=== PATIENT | male | born 1945 | race Caucasian/White ===

== ENCOUNTER 2017-10-18 16:09 | Inpatient (IN) | payer MEDICARE, BC ==
[~2017-10-18] VITALS: Ht 177.8 cm; Wt 84.6 kg
[~2017-10-18 16:09] MED LIST: ASPI-1265 PO; ATOR40TA PO; DIPH25CA6 PO; ESOM20CA PO; FLO0.4C PO; HYDR-3972 PO; LORA10TA65 PO; METO-539 PO; MULT-1074 PO; NITR4.1S2 TL; SILD100T PO; TRAZ-143 PO
[2017-10-18 16:33] LABS: BASOPHILS % (AUTO) 0.3 % (0-1); EOSINOPHILS # (AUTO) 0.6 X10'3 (0-0.9); EOSINOPHILS % (AUTO) 5.4 % (0-6); HEMATOCRIT 38.7 % (42.0-52.0); HEMOGLOBIN 13.2 g/dl (14.0-17.9); LYMPHOCYTES # (AUTO) 0.8 X10'3 (1.1-4.8); LYMPHOCYTES % (AUTO) 6.6 % (21-51); MEAN CORPUSCULAR HEMOGLOBIN 29.8 PG (27.0-31.0); MEAN CORPUSCULAR HGB CONC 34.2 % (33.0-36.5); MEAN CORPUSCULAR VOLUME 87.1 FL (78-98); MONOCYTES # (AUTO) 0.8 X10'3 (0-0.9); MONOCYTES % (AUTO) 6.3 % (2-12); NEUTROPHILS # (AUTO) 9.8 X10'3 (1.8-7.7); NEUTROPHILS % (AUTO) 81.4 % (42-75); PLATELET COUNT 154 X10'3 (140-440); RED BLOOD COUNT 4.44 X10'6 (4.70-6.10); RED CELL DISTRIBUTION WIDTH 13.6 % (11.5-14.5); WHITE BLOOD COUNT 12.1 X10'3 (4.5-11.0)
[2017-10-18 16:45] LABS: INR 1.1 INR; PARTIAL THROMBOPLASTIN TIME 27 SECONDS (22-32); PROTHROMBIN TIME 10.9 SECONDS (9.0-12.0)
[2017-10-18 17:07] LABS: ALANINE AMINOTRANSFERASE 22 U/L (12-78); ALBUMIN 3.5 G/DL (3.4-5.0); ALBUMIN/GLOBULIN RATIO 1.1 (1.1-1.5); ALKALINE PHOSPHATASE 83 IU/L (46-116); ANION GAP 8 (8-16); ASPARTATE AMINO TRANSFERASE 22 U/L (10-37); BILIRUBIN,TOTAL 0.9 MG/DL (0.1-1.0); BLOOD UREA NITROGEN 14 MG/DL (7-18); BUN/CREATININE RATIO 12.7 (5.4-32.0); CALCIUM 8.4 MG/DL (8.5-10.1); CHLORIDE 110 MMOL/L (99-107); GLUCOSE 105 MG/DL (70-104); POTASSIUM 3.9 MMOL/L (3.5-5.1); SODIUM 145 MMOL/L (135-145); TOTAL CARBON DIOXIDE 26.7 MMOL/L (24-32); TOTAL PROTEIN 6.6 G/DL (6.4-8.2); eGFR 65 ML/MIN
[2017-10-18] MEDS ORDERED: potassium cl 20mEq in 1/2 NS 1,000 ML IV SCH (17:42)
[2017-10-18] MEDS ORDERED: acetaminophen 325mg tablet PO PRN (17:45)
[2017-10-18] MEDS ORDERED: magnesium hydroxide 30ml (MOM) UD suspension PO PRN (17:45)
[2017-10-18] MEDS ORDERED: mag hydrox/Alum hydrox/simeth 30ml oral suspension PO PRN (17:45)
[2017-10-18] MEDS ORDERED: ondansetron/PF 4mg/2ml inj IV PRN (17:45)
[2017-10-18] MEDS ORDERED: morphine 2 MG/ML inj. syringe IV PRN ×2 (17:45)
[2017-10-18] MEDS ORDERED: HYDROcodone/acetaminophen 5mg/325mg tablet PO PRN (17:45)
[2017-10-18] MEDS ORDERED: potassium Cl 20 mEq SR tablet PO PRN ×2 (17:45)
[2017-10-18] MEDS ORDERED: magnesium Cl slow-release 64mg tablet PO PRN (17:45)
[2017-10-18] MEDS ORDERED: magnesium 2GM in 50ml NS 50 ML IV PRN (17:45)
[2017-10-18] MEDS ORDERED: bisacodyl 10mg suppository rectal RC PRN (17:45)
[2017-10-18] MEDS ORDERED: magnesium 4gm in 100ml NS 100 ML IV PRN (17:45)
[2017-10-18] MEDS ORDERED: potassium Cl 40MEQ/NS 500ml 500 ML IV PRN ×2 (17:45)
[2017-10-18] MEDS ORDERED: metoprolol tartrate 1mg/ml inj IV PRN (17:50)
[2017-10-18] MEDS ORDERED: regadenoson 0.4mg/5ml syringe IV ONE (17:50)
[2017-10-18] MEDS: aspirin 81mg tab.chew PO SCH (17:50)
[2017-10-18] MEDS ORDERED: aminophylline 250mg/10ml inj. IV PRN (17:50)
[2017-10-18] MEDS ORDERED: nitroGLYCERIN 0.4mg SUBLingual tab SL PRN ×2 (17:50→17:55)
[2017-10-18] MEDS: metoprolol succinate 25mg (24-HOUR) SR. Tablet PO SCH (17:55)
[2017-10-18] MEDS ORDERED: hydrALAZINE 20mg/ml inj. IV PRN (17:55)
[2017-10-18 19:37] LABS: CLARITY,URINE CLEAR (Clear); COLOR,URINE YELLOW (Yellow); GLUCOSE, URINE NEGATIVE (Neg); KETONES,URINE NEGATIVE (Neg); LEUKOCYTE ESTERASE ,URINE NEGATIVE (Neg); NITRITES, URINE NEGATIVE (Neg); OCCULT BLOOD,URINE NEGATIVE (Neg); PROTEIN,URINE NEGATIVE (Neg); UROBILINOGEN,URINE 0.2 E.U/dL (0.2-1.0)
[2017-10-18 19:41] LABS: UA COLLECTION TYPE CLN CATCH MIDSTREAM
[2017-10-18] MEDS: LIDOcaine 5% patch TP SCH (19:42)
[2017-10-18] MEDS: pantoprazole 40 MG vial IV SCH (19:42)
[2017-10-18 20:22] VITALS: BP 159/87
[2017-10-18] MEDS: docusate sod 100mg capsule PO SCH (20:53)
[2017-10-18] MEDS ORDERED: traZODone 50mg tablet PO SCH (21:00)
[2017-10-18] MEDS ORDERED: diphenhydrAMINE 25mg capsule PO SCH (21:00)
[2017-10-18] MEDS: HYDROcodone/acetaminophen 10/325mg tab PO PRN (23:03)
[2017-10-19] VITALS (8 sets, daily range): BP systolic 115–158; BP diastolic 70–78
[2017-10-19] MEDS: HYDROcodone/acetaminophen 10/325mg tab PO PRN (03:20)
[2017-10-19 05:26] LABS: BASOPHILS % (AUTO) 0.4 % (0-1); EOSINOPHILS # (AUTO) 0.6 X10'3 (0-0.9); EOSINOPHILS % (AUTO) 6.7 % (0-6); HEMATOCRIT 36.1 % (42.0-52.0); HEMOGLOBIN 12.4 g/dl (14.0-17.9); LYMPHOCYTES # (AUTO) 0.9 X10'3 (1.1-4.8); LYMPHOCYTES % (AUTO) 9.7 % (21-51); MEAN CORPUSCULAR HEMOGLOBIN 29.6 PG (27.0-31.0); MEAN CORPUSCULAR HGB CONC 34.3 % (33.0-36.5); MEAN CORPUSCULAR VOLUME 86.2 FL (78-98); MEAN PLATELET VOLUME 8.9 FL (7.4-10.4); MONOCYTES # (AUTO) 0.7 X10'3 (0-0.9); NEUTROPHILS % (AUTO) 75.2 % (42-75); PLATELET COUNT 135 X10'3 (140-440); RED BLOOD COUNT 4.19 X10'6 (4.70-6.10); RED CELL DISTRIBUTION WIDTH 13.7 % (11.5-14.5); WHITE BLOOD COUNT 9.3 X10'3 (4.5-11.0)
[2017-10-19 06:07] LABS: ALANINE AMINOTRANSFERASE 20 U/L (12-78); ALKALINE PHOSPHATASE 73 IU/L (46-116); ANION GAP 10 (8-16); ASPARTATE AMINO TRANSFERASE 19 U/L (10-37); BILIRUBIN,TOTAL 0.7 MG/DL (0.1-1.0); BLOOD UREA NITROGEN 13 MG/DL (7-18); BUN/CREATININE RATIO 11.8 (5.4-32.0); CHLORIDE 110 MMOL/L (99-107); CHOL/HDL RATIO 2.5 (0.00-4.99); CHOLESTEROL 91 MG/DL (0-200); GLUCOSE 87 MG/DL (70-104); HDL CHOLESTEROL 36 MG/DL (35-60); LDL CHOLESTEROL 46 MG/DL (50-100); MAGNESIUM 1.8 MG/DL (1.5-2.4); POTASSIUM 3.6 MMOL/L (3.5-5.1); SODIUM 144 MMOL/L (135-145); TOTAL CARBON DIOXIDE 23.9 MMOL/L (24-32); TOTAL PROTEIN 5.9 G/DL (6.4-8.2); TRIGLYCERIDES 57 MG/DL (20-135); eGFR 65 ML/MIN
[2017-10-19] MEDS ORDERED: K and/or MAG REPLACEMENT MC SCH (08:00)
[2017-10-19] MEDS ORDERED: enoxaparin 40mg/0.4ml syringe SUBCUT SCH (08:00)
[2017-10-19] MEDS ORDERED: multivitamins, therapeutics tablet PO SCH (08:00)
[2017-10-19] MEDS ORDERED: tamsulosin 0.4mg capsule PO SCH (08:00)
[2017-10-19] MEDS ORDERED: metoprolol succinate 25mg (24-HOUR) SR. Tablet PO SCH (08:00)
[2017-10-19] MEDS ORDERED: atorvastatin 20mg tablet PO SCH (08:00)
[2017-10-19] MEDS: pantoprazole 40 MG vial IV SCH (08:18)
[2017-10-19] MEDS: aspirin 81mg tab.chew PO SCH (08:19)
[2017-10-19] MEDS: metoprolol succinate 25mg (24-HOUR) SR. Tablet PO SCH (08:19)
[2017-10-19] MEDS: LIDOcaine 5% patch TP SCH (08:20)
[2017-10-19] MEDS: docusate sod 100mg capsule PO SCH (08:20)
[2017-10-19] MEDS ORDERED: lisinopril 5mg tablet PO SCH (09:00)
[2017-10-19] MEDS ORDERED: regadenoson 0.4mg/5ml syringe IV ONE ×2 (09:17→09:20)
[2017-10-19] MEDS ORDERED: aminophylline inj. 0 ML IV ONE (09:17)
[2017-10-19] MEDS ORDERED: NITR0.4T51 SL (15:36)
[2017-10-19] MEDS ORDERED: LISI-604 PO (15:36)
[2017-10-19] MEDS ORDERED: LIDO700A47 TP (15:36)
== END 2017-10-19 16:21 | disposition home or self-care (01) | DRG 552 ==
LOC: ER 16:09 → ED HOLD 17:42 → SUR 3N 20:21
PROVIDERS: ADMIT Internal Medicine; ATTEND Internal Medicine
DX: M47.892 Other spondylosis, cervical region (principal); M48.02 Spinal stenosis, cervical region; D72.828 Other elevated white blood cell count; E78.5 Hyperlipidemia, unspecified; G89.29 Other chronic pain; M50.30 Other cervical disc degeneration, unspecified cervical region; I10 Essential (primary) hypertension; I25.10 Atherosclerotic heart disease of native coronary artery without angina pectoris; K21.9 Gastro-esophageal reflux disease without esophagitis; Z98.84 Bariatric surgery status; Z90.49 Acquired absence of other specified parts of digestive tract; Z95.1 Presence of aortocoronary bypass graft; Z91.041 Radiographic dye allergy status; Z79.82 Long term (current) use of aspirin; Z79.899 Other long term (current) drug therapy; Z87.891 Personal history of nicotine dependence
CPT/HCPCS: 36415; 71045; 72141; 78452; 80053; 80061; 81003; 83735; 83880; 84484; 85025; 85610; 85730; 87070; 93005; 93017; 93306; 99285; A9500; C9113; J0280; J1650; Q0163

== ENCOUNTER 2021-05-07 11:13 | Day surgery (SDC) | payer MEDICARE, BC ==
[~2021-05-07] VITALS: Ht 167.6 cm; Wt 76.3 kg
[2021-05-07] VITALS (9 sets, daily range): BP systolic 119–132; BP diastolic 57–74
[~2021-05-07 11:13] MED LIST changes: -ASPI-1265 PO; -ATOR40TA PO; +BUPR1TAB48 SL; +CYAN500T46 PO; -DIPH25CA6 PO; +DONE10TA7 PO; -ESOM20CA PO; +FERR-28 PO; +FLUC100T25 PO; +FOLI0.4T14 PO; -HYDR-3972 PO; +MEMA14CA PO; -METO-539 PO; +NITR0.4T51 SL; -NITR4.1S2 TL; +PANT-47 PO; +SEVE800T7 PO; -SILD100T PO; +SUCR1TAB PO; -TRAZ-143 PO; +TRAZ-251 PO
[2021-05-07] MEDS ORDERED: normal saline 1,000 ML IV SCH ×2 (11:55→15:05)
[2021-05-07] MEDS ORDERED: diphenhydrAMINE 25mg capsule PO PRN (11:55)
[2021-05-07] MEDS ORDERED: NITR0.4T48 SL (12:04)
[2021-05-07] MEDS ORDERED: ATOR80TA PO (12:04)
[2021-05-07] MEDS ORDERED: PRED20TA (12:06)
[2021-05-07] MEDS ORDERED: METO5TAB98 PO (12:09)
[2021-05-07] MEDS ORDERED: PHO667C PO (12:09)
[2021-05-07] MEDS ORDERED: MIDO10TA PO (12:09)
[2021-05-07] MEDS ORDERED: CYCL-1 PO (12:09)
[2021-05-07] MEDS ORDERED: MEMA5TAB42 PO (12:09)
[2021-05-07] MEDS ORDERED: FOLI1TAB34 PO (12:09)
[2021-05-07] MEDS ORDERED: ASPI-611 PO (12:12)
[2021-05-07] MEDS ORDERED: FURO80TA3 (12:12)
[2021-05-07] MEDS ORDERED: PREVAGEN (12:14)
[2021-05-07] MEDS ORDERED: OCCUVITE (12:14)
[2021-05-07] MEDS ORDERED: CA C1TAB89 PO (12:14)
[2021-05-07 12:21] LABS: BASOPHILS % (AUTO) 0 % (0-1); EOSINOPHILS % (AUTO) 0 % (0-6); HEMATOCRIT 29.4 % (42.0-52.0); HEMOGLOBIN 9.8 g/dl (14.0-17.9); LYMPHOCYTES # (AUTO) 0.3 X10'3 (1.1-4.8); LYMPHOCYTES % (AUTO) 2.2 % (21-51); MEAN CORPUSCULAR HEMOGLOBIN 31.2 PG (27.0-31.0); MEAN CORPUSCULAR HGB CONC 33.3 g/dL (33.0-36.5); MEAN CORPUSCULAR VOLUME 93.6 FL (78-98); MEAN PLATELET VOLUME 7.3 FL (7.4-10.4); MONOCYTES # (AUTO) 0.3 X10'3 (0-0.9); MONOCYTES % (AUTO) 1.7 % (2-12); NEUTROPHILS # (AUTO) 14.9 X10'3 (1.8-7.7); NEUTROPHILS % (AUTO) 96.1 % (42-75); PLATELET COUNT 254 X10'3 (140-440); RED BLOOD COUNT 3.15 X10'6 (4.70-6.10); RED CELL DISTRIBUTION WIDTH 12.9 % (11.5-14.5); WHITE BLOOD COUNT 15.4 X10'3 (4.5-11.0)
[2021-05-07 12:45] LABS: ALBUMIN 3.2 G/DL (3.4-5.0); ANION GAP 13 (8-16); BLOOD UREA NITROGEN 88 MG/DL (7-18); BUN/CREATININE RATIO 12.5 (5.4-32.0); CALCIUM 7.4 MG/DL (8.5-10.1); CHLORIDE 96 MMOL/L (99-107); CREATININE 7.02 MG/DL (0.60-1.10); GLUCOSE 156 MG/DL (70-104); MAGNESIUM 2.5 MG/DL (1.5-2.4); POTASSIUM 3.6 MMOL/L (3.5-5.1); SODIUM 135 MMOL/L (135-145); TOTAL CARBON DIOXIDE 25.8 MMOL/L (24-32); eGFR 8 ML/MIN
[2021-05-07] MEDS ORDERED: iohexol 350 MG/ML 50ML vial IV ONE (13:17)
[2021-05-07] MEDS ORDERED: heparin 1,000unit/ml 10ml vial 10 ML ONE (13:17)
[2021-05-07] MEDS ORDERED: LIDOcaine 1% (10mg/ml)w/preservative injection 20ml MDV ONE (13:17)
[2021-05-07] MEDS ORDERED: midazolam 1 mg/ML 2ml injection ONE ×2 (13:17→14:19)
[2021-05-07] MEDS ORDERED: fentaNYL/PF 50MCG/1 ML 2ML syringe ONE (13:17)
[2021-05-07] MEDS ORDERED: iohexol 350MG/ML 100ml bottle IV ONE (13:18)
[2021-05-07] MEDS ORDERED: sodium bicarbonate (8.4%) inj. 150 ML in dextrose 5%-water 1,000 ML IV ONE (13:20)
[2021-05-07] MEDS ORDERED: diphenhydrAMINE 50 mg/ml inj ONE (14:09)
[2021-05-07] MEDS ORDERED: ondansetron/PF 4mg/2ml inj IV PRN (15:05)
[2021-05-07] MEDS ORDERED: HYDROcodone/acetaminophen 5mg/325mg tablet PO PRN (15:10)
[2021-05-07] MEDS ORDERED: OXAZEpam 15mg capsule PO PRN (15:10)
[2021-05-07] MEDS ORDERED: proCHLORperazine 10 MG/2 ml inj IV PRN (15:10)
[2021-05-07] MEDS ORDERED: HYDROcodone/acetaminophen 10/325mg tab PO PRN (15:10)
== END 2021-05-07 18:10 | disposition home or self-care (01) ==
LOC: SSTAY O 11:13
PROVIDERS: ATTEND Internal Medicine Cardiovascular Disease
DX: R94.39 Abnormal result of other cardiovascular function study (principal); R07.89 Other chest pain; I25.719 Atherosclerosis of autologous vein coronary artery bypass graft(s) with unspecified angina pectoris; I25.82 Chronic total occlusion of coronary artery; I10 Essential (primary) hypertension; I47.1 Supraventricular tachycardia; Z87.891 Personal history of nicotine dependence; Z79.82 Long term (current) use of aspirin; Z79.899 Other long term (current) drug therapy
CPT/HCPCS: 36415; 80048; 83735; 85025; 85610; 93005; 93459; 99152; C1760; C1769; C1894; J1200; J1644; J2001; J2250; J3010; J7030; Q0163; Q9967; A4620; A6258

== ENCOUNTER 2021-05-30 12:13 | Inpatient (IN) | payer MEDICARE, BC ==
[~2021-05-30] VITALS: Ht 172.7 cm; Wt 70.0 kg
[2021-05-30] VITALS (11 sets, daily range): BP systolic 115–161; BP diastolic 64–78
[~2021-05-30 12:13] MED LIST changes: +ASPI-611 PO; +ATOR80TA PO; -BUPR1TAB48 SL; +CA C1TAB89 PO; -CYAN500T46 PO; +CYCL-1 PO; -FERR-28 PO; -FLUC100T25 PO; +FOLI1TAB34 PO; +FURO80TA3 PO; -LORA10TA65 PO; -MEMA14CA PO; +MEMA5TAB42 PO; +METO5TAB98 PO; +MIDO10TA PO; +NITR0.4T48 SL; -NITR0.4T51 SL; +OCCUVITE; +PHO667C PO; +PRED20TA; +PREVAGEN; -SEVE800T7 PO; -SUCR1TAB PO
[2021-05-30] MEDS ORDERED: BUPIVAcaine 0.5% inj/PF 30 ML ONE (12:33)
[2021-05-30] MEDS ORDERED: ceFAZolin 1000mg inj ONE (12:33)
[2021-05-30] MEDS ORDERED: methylPREDNISolone sod succ/PF 40mg inj. IV ONE (12:40)
[2021-05-30] MEDS ORDERED: diphenhydrAMINE 50 mg/ml inj IV ONE (12:40)
[2021-05-30 13:00] LABS: BASOPHILS % (AUTO) 0.1 % (0-1); EOSINOPHILS % (AUTO) 0 % (0-6); HEMATOCRIT 35.2 % (42.0-52.0); HEMOGLOBIN 11.5 g/dl (14.0-17.9); LYMPHOCYTES # (AUTO) 0.2 X10'3 (1.1-4.8); LYMPHOCYTES % (AUTO) 0.8 % (21-51); MEAN CORPUSCULAR HGB CONC 32.8 g/dL (33.0-36.5); MEAN CORPUSCULAR VOLUME 94.5 FL (78-98); MEAN PLATELET VOLUME 7.4 FL (7.4-10.4); MONOCYTES # (AUTO) 0.4 X10'3 (0-0.9); MONOCYTES % (AUTO) 1.8 % (2-12); NEUTROPHILS # (AUTO) 19.9 X10'3 (1.8-7.7); NEUTROPHILS % (AUTO) 97.3 % (42-75); PLATELET COUNT 261 X10'3 (140-440); RED BLOOD COUNT 3.72 X10'6 (4.70-6.10); RED CELL DISTRIBUTION WIDTH 13.5 % (11.5-14.5); WHITE BLOOD COUNT 20.4 X10'3 (4.5-11.0)
[2021-05-30 13:08] LABS: ALANINE AMINOTRANSFERASE 28 U/L (12-78); ALBUMIN 3.3 G/DL (3.4-5.0); ALBUMIN/GLOBULIN RATIO 0.9 (1.1-1.5); ALKALINE PHOSPHATASE 105 IU/L (46-116); ANION GAP 14 (8-16); ASPARTATE AMINO TRANSFERASE 28 U/L (10-37); BILIRUBIN,TOTAL 0.5 MG/DL (0.1-1.0); BLOOD UREA NITROGEN 66 MG/DL (7-18); BUN/CREATININE RATIO 8.9 (5.4-32.0); CALCIUM 7.5 MG/DL (8.5-10.1); CHLORIDE 99 MMOL/L (99-107); CREATININE 7.45 MG/DL (0.60-1.10); GLUCOSE 219 MG/DL (70-104); POTASSIUM 3.3 MMOL/L (3.5-5.1); SODIUM 137 MMOL/L (135-145); TOTAL CARBON DIOXIDE 23.9 MMOL/L (24-32); TOTAL PROTEIN 6.9 G/DL (6.4-8.2); eGFR 7 ML/MIN
[2021-05-30 13:22] LABS: PARTIAL THROMBOPLASTIN TIME 27 SECONDS (22-32)
[2021-05-30] MEDS ORDERED: normal saline 1000ML IV soln IV ONE (13:25)
[2021-05-30 14:07] LABS: CLARITY,URINE CLEAR (Clear); COLOR,URINE YELLOW (Yellow); GLUCOSE, URINE 100 mg/dl (Neg); KETONES,URINE TRACE mg/dl (Neg); LEUKOCYTE ESTERASE ,URINE NEGATIVE (Neg); NITRITES, URINE NEGATIVE (Neg); OCCULT BLOOD,URINE MODERATE (Neg); PROTEIN,URINE 30 mg/dl (Neg); UROBILINOGEN,URINE 0.2 E.U/dL (0.2-1.0)
[2021-05-30 14:13] LABS: UA COLLECTION TYPE CLN CATCH MIDSTREAM
[2021-05-30] MEDS ORDERED: HYDROmorphone inj. 0.5 MG/0.5 ML DISP.SYRIN IV ONE (14:15)
[2021-05-30 14:33] LABS: BACTERIA,URINE FEW /HPF (Neg); MUCUS STRANDS FEW /LPF (Neg); RBC,URINE 20-50 /HPF (0-2); SQUAMOUS EPITHELIAL CELL,UR FEW /LPF (FEW); WBC,URINE 0-4 /HPF (0-4)
[2021-05-30 14:34] LABS: HYALINE CASTS 0-3 /LPF (NEGATIVE)
[2021-05-30] MEDS ORDERED: iohexol 350MG/ML 100ml bottle IV ONE (14:50)
[2021-05-30] MEDS ORDERED: metroNIDAZOLE-Flagyl 500mg/NS 100 ML IV STA (15:32)
[2021-05-30] MEDS ORDERED: piperacillin/tazo 3.375gm/50ml 50 ML IV ONE (15:35)
[2021-05-30] MEDS ORDERED: ondansetron/PF 4mg/2ml inj IV ONE (15:35)
[2021-05-30] MEDS ORDERED: normal saline 1000ML IV soln IVB ONE (15:35)
[2021-05-30] MEDS ORDERED: ondansetron/PF 4mg/2ml inj IV PRN ×2 (16:10→16:40)
[2021-05-30] MEDS ORDERED: acetaminophen 325mg tablet PO PRN (16:10)
[2021-05-30] MEDS ORDERED: LIDOcaine 2% 10ml TOPICAL JELLY (Urojet) TP ONE (16:10)
[2021-05-30] MEDS ORDERED: CLOP75TA33 PO (16:26)
[2021-05-30] MEDS ORDERED: DONE23TA7 PO (16:26)
[2021-05-30] MEDS ORDERED: BETA1TAB19 PO (16:26)
[2021-05-30] MEDS ORDERED: FA/V1TAB PO (16:26)
[2021-05-30] MEDS ORDERED: SEVE800T7 PO (16:33)
[2021-05-30] MEDS ORDERED: BUPR1TAB48 PO (16:33)
[2021-05-30] MEDS ORDERED: FERR-39 PO (16:33)
--- NOTE | 2021-05-30 16:33 | NUR ---
pt transported to OR by OR personnel
[2021-05-30] MEDS ORDERED: ringers solution, lacted 1,000 ML IV SCH (16:40)
[2021-05-30] MEDS ORDERED: FENTANYL-0.9 % NACL/PF 100 ML IV PRN (16:40)
[2021-05-30] MEDS ORDERED: MIDAZolam inj 50 MG in normal saline 50ml IV soln 40 ML IV SCH (16:40)
[2021-05-30] MEDS ORDERED: midazolam 100mg in NS 100 ML INFUSION IV PRN (16:50)
[2021-05-30] MEDS ORDERED: ondansetron/PF 4mg/2ml inj ONE (16:56)
[2021-05-30] MEDS ORDERED: sevoflurane 250ml liquid IH ONE (16:56)
[2021-05-30] MEDS ORDERED: fentaNYL/PF 50MCG/1 ML 2ML syringe ONE ×2 (17:01→17:18)
[2021-05-30] MEDS ORDERED: MIDAZolam 1 MG/ML 5ML VIAL ONE (17:02)
[2021-05-30] MEDS ORDERED: rocuronium 10mg/ml inj IV ONE ×2 (17:03→18:10)
[2021-05-30] MEDS ORDERED: etomidate 2mg/ml inj. ONE (17:03)
[2021-05-30] MEDS ORDERED: dexamethasone sod phosphate 4mg/ml inj. ONE (17:35)
[2021-05-30 17:59] LABS: ABG BASE EXCESS -4.7 mmol/L (-2.0-2.0); ABG HCO3 19.8 mmol/L (22.0-26.0); ABG OXYGEN SATURATION 98.2 % (94-97); ABG PCO2 (T) 33.1 mmHg (35.0-48.0); ABG PO2 (T) 395.9 mmHg (75.0-100.0); FCOHb 0.3 % (0.0-3.9); FMetHb 0.3 % (0.0-1.5); FO2Hb 97.6 % (94-97); PATIENT TEMPERATURE 36.2; RESPIRATORY RATE 12 b/min; TIDAL VOLUME 500 mL; TOTAL HEMOGLOBIN 9.5 G/dl (14.0-18.0)
[2021-05-30] MEDS ORDERED: bacitracin 15gm ointment TP ONE (18:16)
--- NOTE | 2021-05-30 18:32 | NUR ---
Received from OR via BED TO ICU, accompanied by Anesthesiologist GELA and report given by Anesthesiolgist. PT. VENTED. RT PRESENT. SEE RT NOTES. ET TUBE 25MM AT LIPS. SECURED. FC IN PLACE 300 ML DARK YELLOW URINE NOTED. CENTRAL R. NECK. R. WRIST ART. LINE, ZEROED, L. FA 20 G. CDI. VSS. ABD. DRESSING ABD PAD/ TAPE OVER STERI STRIPS, NO OTHER CLOSURE, IN PLACE DRAINAGE NOTED. REINFORCED. NS INFUSING AT 100 ML/HR. MIDAZOLAM 2 MG/HR, FENTANYL 75 MCG/HR INFUSING IN R. NECK CENTRAL LINE. PERITONEAL DIALYSIS CATHETER IN PLACE. RESTRAINTS APPLIED. VSS. NURSE AT BEDSIDE. Addendum: 05/30/21 at 1930 by Radha Sellers RN Amended: Links added.
--- NOTE | 2021-05-30 19:18 | NUR ---
MD NOTIFIED OF DRAINAGE AT DRESSING. PRESSURE BEING APPLIED AT SITE. MD WILL BE NOTIFIED IF FURTHER ATTENTION IS NEEDED. Addendum: 05/30/21 at 1930 by Radha Sellers RN Amended: Links added.
[2021-05-30 19:30] LABS: BASOPHILS % (AUTO) 0 % (0-1); EOSINOPHILS % (AUTO) 0 % (0-6); HEMATOCRIT 26.3 % (42.0-52.0); HEMOGLOBIN 8.7 g/dl (14.0-17.9); LYMPHOCYTES # (AUTO) 0.1 X10'3 (1.1-4.8); LYMPHOCYTES % (AUTO) 1.1 % (21-51); MEAN CORPUSCULAR HGB CONC 32.9 g/dL (33.0-36.5); MEAN CORPUSCULAR VOLUME 94.2 FL (78-98); MONOCYTES # (AUTO) 0.2 X10'3 (0-0.9); MONOCYTES % (AUTO) 1.4 % (2-12); NEUTROPHILS # (AUTO) 12.9 X10'3 (1.8-7.7); NEUTROPHILS % (AUTO) 97.5 % (42-75); PLATELET COUNT 192 X10'3 (140-440); RED CELL DISTRIBUTION WIDTH 13.3 % (11.5-14.5); WHITE BLOOD COUNT 13.3 X10'3 (4.5-11.0)
--- NOTE | 2021-05-30 19:33 | NUR ---
CHARGE AWARE OF R. GROIN FLUID ACCUMULATION, RN NOTIFIED . STATES PT HAS R. INGUINAL HERNIA. NO NEW ORDERS. CONTINUED PRESSURE ON WOUND X FOR 25 MINUTES. DECREASED BLEEDING, REINFORCEMENT AND PRESSURE DRESSING APPLIED. Addendum: 05/30/21 at 1937 by Radha Sellers RN Amended: Links added.
[2021-05-30 19:40] LABS: PARTIAL THROMBOPLASTIN TIME 26 SECONDS (22-32)
[2021-05-30 19:42] LABS: ALANINE AMINOTRANSFERASE 22 U/L (12-78); ALBUMIN 2.8 G/DL (3.4-5.0); ALBUMIN/GLOBULIN RATIO 1.1 (1.1-1.5); ALKALINE PHOSPHATASE 75 IU/L (46-116); ANION GAP 15 (8-16); ASPARTATE AMINO TRANSFERASE 24 U/L (10-37); BILIRUBIN,TOTAL 0.5 MG/DL (0.1-1.0); BLOOD UREA NITROGEN 58 MG/DL (7-18); CALCIUM 6.4 MG/DL (8.5-10.1); CHLORIDE 106 MMOL/L (99-107); CREATININE 6.43 MG/DL (0.60-1.10); GLUCOSE 167 MG/DL (70-104); POTASSIUM 3.5 MMOL/L (3.5-5.1); SODIUM 140 MMOL/L (135-145); TOTAL CARBON DIOXIDE 19.5 MMOL/L (24-32); TOTAL PROTEIN 5.3 G/DL (6.4-8.2); eGFR 8 ML/MIN
--- NOTE | 2021-05-30 19:42 | NUR ---
HANDED OF CARE TO CHANEL SUAREZ IN ICU. VSS. CONTINUES ON VENT. SEE RT NOTES. IVS IN PLACE NS INFUSING AT 100 ML/HR, MIDAZOLAM AND FENTYL INFUSING FOR SEDATION. FC DRAINING TO GRAVITY. WOUND REINFORCED AND PRESSURE DRESSING APPLIED. DC CRITERIA MET FOR ICU HAND OFF. PT. SEDATED COMFORTABLY. RESTRAINTS IN PLACE. AWARE OF BLEEDING AND FLUID AT GROIN AREA. RN AAWARE OF ALL INFORMATION. QUESTIONS ANSWERED. Addendum: 05/30/21 at 1954 by Radha Sellers RN Amended: Links added.
[2021-05-30] MEDS: heparin, porcine 5000 units/ml vial SQ SCH (19:45)
[2021-05-30 19:58] LABS: ABG BASE EXCESS -5.6 mmol/L (-2.0-2.0); ABG HCO3 18.3 mmol/L (22.0-26.0); ABG OXYGEN SATURATION 98.2 % (94-97); ABG PCO2 (T) 28.1 mmHg (35.0-48.0); FCOHb 0.3 % (0.0-3.9); FMetHb 0.3 % (0.0-1.5); FO2Hb 97.6 % (94-97); PATIENT TEMPERATURE 35.6; PEEP 5 cm H2O; RESPIRATORY RATE 12 b/min; TIDAL VOLUME 600 mL
--- NOTE | 2021-05-30 20:20 | NUR ---
RN Note -MD Communication Dr. Martínez consulted, saw pt via tele [facility]. Orders received.
[2021-05-30] MEDS: famotidine/PF 10 mg/ml inj IV SCH (20:23)
[2021-05-30] MEDS ORDERED: fentaNYL/PF 50MCG/1 ML 2ML syringe IV PRN (20:45)
[2021-05-30] MEDS ORDERED: dexmedetomidin/NS 400mcg/100ml 100 ML IV SCH (22:35)
[2021-05-31] VITALS (30 sets, daily range): BP systolic 84–136; BP diastolic 40–68
[2021-05-31 03:05] LABS: ABG BASE EXCESS -5.9 mmol/L (-2.0-2.0); ABG HCO3 18.4 mmol/L (22.0-26.0); ABG OXYGEN SATURATION 97.8 % (94-97); ABG PO2 (T) 197.4 mmHg (75.0-100.0); FCOHb 0.2 % (0.0-3.9); FMetHb 0.3 % (0.0-1.5); FO2Hb 97.3 % (94-97); PATIENT TEMPERATURE 37.1; PEEP 5 cm H2O; RESPIRATORY RATE 14 b/min; TIDAL VOLUME 500 mL; TOTAL HEMOGLOBIN 7.6 G/dl (14.0-18.0)
[2021-05-31 03:15] LABS: BASOPHILS % (AUTO) 0.1 % (0-1); EOSINOPHILS % (AUTO) 0 % (0-6); HEMATOCRIT 23.6 % (42.0-52.0); HEMOGLOBIN 7.8 g/dl (14.0-17.9); LYMPHOCYTES # (AUTO) 0.2 X10'3 (1.1-4.8); LYMPHOCYTES % (AUTO) 1.4 % (21-51); MEAN CORPUSCULAR HEMOGLOBIN 31.2 PG (27.0-31.0); MEAN CORPUSCULAR VOLUME 94.7 FL (78-98); MEAN PLATELET VOLUME 7.8 FL (7.4-10.4); MONOCYTES # (AUTO) 0.8 X10'3 (0-0.9); MONOCYTES % (AUTO) 4.7 % (2-12); NEUTROPHILS # (AUTO) 15.6 X10'3 (1.8-7.7); NEUTROPHILS % (AUTO) 93.8 % (42-75); PLATELET COUNT 204 X10'3 (140-440); RED BLOOD COUNT 2.49 X10'6 (4.70-6.10); RED CELL DISTRIBUTION WIDTH 13.8 % (11.5-14.5); WHITE BLOOD COUNT 16.6 X10'3 (4.5-11.0)
[2021-05-31 03:46] LABS: ALANINE AMINOTRANSFERASE 25 U/L (12-78); ALBUMIN 2.5 G/DL (3.4-5.0); ALKALINE PHOSPHATASE 65 IU/L (46-116); ANION GAP 17 (8-16); ASPARTATE AMINO TRANSFERASE 21 U/L (10-37); BILIRUBIN,TOTAL 0.3 MG/DL (0.1-1.0); BLOOD UREA NITROGEN 59 MG/DL (7-18); BUN/CREATININE RATIO 8.9 (5.4-32.0); CALCIUM 6.9 MG/DL (8.5-10.1); CHLORIDE 105 MMOL/L (99-107); CREATININE 6.65 MG/DL (0.60-1.10); GLUCOSE 148 MG/DL (70-104); MAGNESIUM 2.4 MG/DL (1.5-2.4); PHOSPHORUS 7.9 MG/DL (2.3-4.5); POTASSIUM 4.2 MMOL/L (3.5-5.1); SODIUM 141 MMOL/L (135-145); TOTAL CARBON DIOXIDE 19.3 MMOL/L (24-32); TOTAL PROTEIN 4.9 G/DL (6.4-8.2); eGFR 8 ML/MIN
[2021-05-31] MEDS ORDERED: midodrine 5mg tablet PO ONE (03:50)
[2021-05-31] MEDS ORDERED: ringers solution, lacted 1,000 ML IV ONE (03:50)
--- NOTE | 2021-05-31 04:35 | NUR ---
RN Note -MD Communication Called Dr. Martínez regarding hypotension and pain control. Orders received.
--- NOTE | 2021-05-31 06:30 | NUR ---
Patient in room ICU 2037. I have received report from Mac RN and had the opportunity to ask questions and assume patient care.
[2021-05-31] MEDS ORDERED: fentaNYL/PF 50MCG/1 ML 2ML syringe IV PRN (07:40)
[2021-05-31] MEDS ORDERED: midodrine tablet 2.5 MG TABLET PO SCH ×2 (08:00→21:00)
[2021-05-31] MEDS ORDERED: midodrine 5mg tablet PO SCH (08:00)
[2021-05-31] MEDS: heparin, porcine 5000 units/ml vial SQ SCH ×2 (08:00→20:00)
[2021-05-31 08:56] LABS: HEMOGLOBIN 7.1 g/dl (14.0-17.9); MEAN CORPUSCULAR HEMOGLOBIN 30.1 PG (27.0-31.0); MEAN CORPUSCULAR HGB CONC 32.5 g/dL (33.0-36.5); MEAN CORPUSCULAR VOLUME 92.7 FL (78-98); MEAN PLATELET VOLUME 7.5 FL (7.4-10.4); PLATELET COUNT 178 X10'3 (140-440); RED BLOOD COUNT 2.36 X10'6 (4.70-6.10); RED CELL DISTRIBUTION WIDTH 14.1 % (11.5-14.5); WHITE BLOOD COUNT 12.1 X10'3 (4.5-11.0)
[2021-05-31 09:06] LABS: HEMATOCRIT 21.8 % (42.0-52.0)
[2021-05-31] MEDS: FENTANYL-0.9 % NACL/PF 100 ML IV PRN ×2 (09:07→17:24)
[2021-05-31] MEDS: famotidine/PF 10 mg/ml inj IV SCH ×2 (09:07→20:33)
[2021-05-31] MEDS ORDERED: EPOETIN ALFA-EPBX 20,000 UNIT/ML 1 ML MDV IV ONE (09:40)
[2021-05-31] MEDS ORDERED: normal saline 1000ml 100 ML IV PRN (09:40)
[2021-05-31] MEDS ORDERED: normal saline 1000ml 250 ML IV PRN (09:40)
[2021-05-31] MEDS ORDERED: heparin 1,000 units/ml 10ml inj HE ONE ×2 (09:45)
[2021-05-31] MEDS ORDERED: midazolam 100mg in NS 100ml 100 ML IV PRN ×2 (10:25→12:31)
[2021-05-31] MEDS ORDERED: midazolam 1 mg/ML 2ml injection IV ONE (10:25)
[2021-05-31] MEDS ORDERED: LIDOcaine 1%/PF 5ML 10 MG/ML VIAL ONE (12:24)
[2021-05-31] MEDS ORDERED: heparin 1,000unit/ml 10ml vial 10 ML ONE (12:24)
[2021-05-31] MEDS: fluconazole-Diflucan 100MG/NS 50 ML IV SCH (13:13)
--- NOTE | 2021-05-31 13:14 | NUR ---
TRANSPORT TO CT AND IR FOR TDC Addendum: 05/31/21 at 1315 by Amber Alvarado RT Amended: Links added.
[2021-05-31] MEDS: piperacillin/tazo 3.375gm/50ml 50 ML IV SCH ×2 (13:50→20:33)
--- NOTE | 2021-05-31 13:54 | NUR ---
Initial: Pt intubated admit DX intra-abdominal sepsis, cecal volvulus, and hx ESRD on PD w/ recent PD catheter replacement per EMR. S/p OR yesterday w/ necrotic cecum resection and anastomosis between Ileum and transverse colon per MD note. Pt remains NPO w/ OG in place MAP 58-60 this AM per RN. Concerns for post-op bleed pending CT per MD. Phos 7.9 unable to use PD catheter at this time per RN. Will monitor for nutrition support needs post-op. Rec: 1. IF no GI compromise w/ MAP at least 60 and remains intubated; consider EN to meet nutrition needs on vent 2. IF GI compromise or anticipated prolonged NPO post-op; consider non-E TPN to meet needs given hx ESRD on PD 3. IF EN/PN; PALB Q / and daily wts 4. upon extubation; advance diet as medically indicated to low-residue/renal 5. Once PO; consider phos binder w/ meals w/ Phos 7.9 this AM IF MD agreeable Addendum: 05/31/21 at [address] Amended: Links added.
[2021-05-31 15:10] LABS: HEMOGLOBIN 8.6 g/dl (14.0-17.9); MEAN CORPUSCULAR HEMOGLOBIN 30.8 PG (27.0-31.0); MEAN CORPUSCULAR HGB CONC 33.2 g/dL (33.0-36.5); MEAN CORPUSCULAR VOLUME 92.7 FL (78-98); MEAN PLATELET VOLUME 7.7 FL (7.4-10.4); PLATELET COUNT 179 X10'3 (140-440); RED CELL DISTRIBUTION WIDTH 14.9 % (11.5-14.5); WHITE BLOOD COUNT 13.8 X10'3 (4.5-11.0)
[2021-05-31] MEDS ORDERED: cyclobenzaprine 10mg tablet PO PRN (15:15)
--- NOTE | 2021-05-31 18:54 | NUR ---
Problems reprioritized. Patient report given, questions answered & plan of care reviewed with Mac RN.
[2021-05-31] MEDS: multivitamins, therapeutics tablet PO SCH (20:00)
[2021-05-31] MEDS: ferrous sulfate 325mg tablet PO SCH (20:33)
[2021-05-31] MEDS: NALOXONE HCL PO SCH (20:34)
[2021-05-31] MEDS: BUPRENORPHINE HCL PO SCH (20:34)
[2021-05-31] MEDS: atorvastatin 20mg tablet PO SCH (20:34)
[2021-05-31] MEDS: traZODone 50mg tablet PO SCH (20:35)
[2021-05-31] MEDS: calcium acetate 667mg (PhosLO) capsule PO SCH (20:36)
[2021-05-31] MEDS: sevelamer carbonate 800mg tablet PO SCH (20:36)
[2021-06-01] VITALS (24 sets, daily range): BP systolic 110–147; BP diastolic 43–61
[2021-06-01 02:06] LABS: BASOPHILS % (AUTO) 0.1 % (0-1); EOSINOPHILS % (AUTO) 0.1 % (0-6); HEMATOCRIT 25.8 % (42.0-52.0); HEMOGLOBIN 8.7 g/dl (14.0-17.9); LYMPHOCYTES # (AUTO) 0.4 X10'3 (1.1-4.8); LYMPHOCYTES % (AUTO) 2.8 % (21-51); MEAN CORPUSCULAR HEMOGLOBIN 30.8 PG (27.0-31.0); MEAN CORPUSCULAR HGB CONC 33.7 g/dL (33.0-36.5); MEAN CORPUSCULAR VOLUME 91.4 FL (78-98); MEAN PLATELET VOLUME 7.5 FL (7.4-10.4); MONOCYTES # (AUTO) 1.3 X10'3 (0-0.9); MONOCYTES % (AUTO) 8.8 % (2-12); NEUTROPHILS # (AUTO) 13.2 X10'3 (1.8-7.7); NEUTROPHILS % (AUTO) 88.2 % (42-75); PLATELET COUNT 202 X10'3 (140-440); RED BLOOD COUNT 2.83 X10'6 (4.70-6.10); RED CELL DISTRIBUTION WIDTH 14.8 % (11.5-14.5); WHITE BLOOD COUNT 14.9 X10'3 (4.5-11.0)
[2021-06-01 02:23] LABS: ALANINE AMINOTRANSFERASE 21 U/L (12-78); ALBUMIN 2.3 G/DL (3.4-5.0); ALBUMIN/GLOBULIN RATIO 0.9 (1.1-1.5); ALKALINE PHOSPHATASE 61 IU/L (46-116); ANION GAP 15 (8-16); ASPARTATE AMINO TRANSFERASE 22 U/L (10-37); BILIRUBIN,TOTAL 0.4 MG/DL (0.1-1.0); BLOOD UREA NITROGEN 75 MG/DL (7-18); BUN/CREATININE RATIO 10.8 (5.4-32.0); CALCIUM 7.3 MG/DL (8.5-10.1); CHLORIDE 109 MMOL/L (99-107); CREATININE 6.95 MG/DL (0.60-1.10); GLUCOSE 126 MG/DL (70-104); MAGNESIUM 2.5 MG/DL (1.5-2.4); POTASSIUM 4.3 MMOL/L (3.5-5.1); SODIUM 144 MMOL/L (135-145); TOTAL CARBON DIOXIDE 20.2 MMOL/L (24-32); TOTAL PROTEIN 4.9 G/DL (6.4-8.2); eGFR 8 ML/MIN
[2021-06-01 02:27] LABS: ABG BASE EXCESS -5.8 mmol/L (-2.0-2.0); ABG OXYGEN SATURATION 97.9 % (94-97); ABG PCO2 (T) 24.9 mmHg (35.0-48.0); ABG PO2 (T) 137.3 mmHg (75.0-100.0); FCOHb 0.2 % (0.0-3.9); FO2Hb 97.7 % (94-97); PATIENT TEMPERATURE 36.9; PEEP 5 cm H2O; RESPIRATORY RATE 14 b/min; TIDAL VOLUME 500 mL; TOTAL HEMOGLOBIN 9.3 G/dl (14.0-18.0)
[2021-06-01] MEDS: FENTANYL-0.9 % NACL/PF 100 ML IV PRN ×3 (02:27→23:58)
[2021-06-01] MEDS: NALOXONE HCL PO SCH ×3 (08:00→20:15)
[2021-06-01] MEDS ORDERED: DONEPEZIL 23 MG PO SCH (08:00)
[2021-06-01] MEDS ORDERED: EPOETIN ALFA-EPBX 20,000 UNIT/ML 1 ML MDV IV ONE (08:00)
[2021-06-01] MEDS ORDERED: MAG OX PO SCH (08:00)
[2021-06-01] MEDS: BUPRENORPHINE HCL PO SCH ×3 (08:00→20:15)
[2021-06-01] MEDS ORDERED: ZN OXIDE PO SCH (08:00)
[2021-06-01] MEDS ORDERED: VIT D3 PO SCH (08:00)
[2021-06-01] MEDS ORDERED: CA CARB PO SCH (08:00)
[2021-06-01] MEDS ORDERED: heparin 1,000 units/ml 10ml inj HE ONE ×2 (08:00)
[2021-06-01] MEDS: midodrine 5mg tablet PO SCH ×3 (08:21→16:52)
[2021-06-01] MEDS: heparin, porcine 5000 units/ml vial SQ SCH ×2 (09:48→20:01)
[2021-06-01] MEDS: piperacillin/tazo 3.375gm/50ml 50 ML IV SCH ×2 (09:48→19:59)
[2021-06-01] MEDS: beta-carotene(A) w/C & E + minerals tab PO SCH ×2 (09:49→19:59)
[2021-06-01] MEDS: clopidogrel 75mg tablet PO SCH (09:49)
[2021-06-01] MEDS: pantoprazole 40mg Tablet.DR PO SCH (09:49)
[2021-06-01] MEDS: famotidine/PF 10 mg/ml inj IV SCH ×2 (09:49→20:01)
[2021-06-01] MEDS: tamsulosin 0.4mg capsule PO SCH (09:50)
[2021-06-01] MEDS: folic acid/vitamin B complex w/vitamin C 0.8mg tablet PO SCH (09:50)
[2021-06-01] MEDS: calcium acetate 667mg (PhosLO) capsule PO SCH ×3 (09:50→19:59)
[2021-06-01] MEDS: aspirin 81mg, enteric-coated 1 TAB TABLET.DR PO SCH (09:50)
[2021-06-01] MEDS: furosemide 40mg tablet PO SCH (09:51)
[2021-06-01] MEDS: ferrous sulfate 325mg tablet PO SCH ×2 (09:51→19:59)
[2021-06-01] MEDS: sevelamer carbonate 800mg tablet PO SCH ×3 (09:51→20:00)
[2021-06-01] MEDS: folic acid 1mg tablet PO SCH (09:52)
[2021-06-01] MEDS: memantine 5mg tablet PO SCH (10:55)
[2021-06-01] MEDS: multivitamins, therapeutics tablet PO SCH ×2 (10:59→20:00)
[2021-06-01] MEDS: fluconazole-Diflucan 100MG/NS 50 ML IV SCH (12:03)
[2021-06-01] MEDS ORDERED: lactulose 20gm/30ml cup PO PRN (16:10)
--- NOTE | 2021-06-01 17:30 | NUR ---
Attempted weaning parameters with patient. Patient remained very sleepy for most of the day and when tried on spontaneous mode, patient was apneic. At 1630 patient woke up and was very agitated with HR in 120's and RR 38. Attempted to calm patient, but patient was unconsolable. Patient attempting to sit up and reach for tube. Sedation restarted. Will plan for sedation vacation in early am to attempt weaning tomorrow.
--- NOTE | 2021-06-01 18:41 | NUR ---
Patient in room ICU 2041. I have received report from Mac RN and had the opportunity to ask questions and assume patient care.
--- NOTE | 2021-06-01 18:44 | NUR ---
Problems reprioritized. Patient report given, questions answered & plan of care reviewed with Fritz SUAREZ.
[2021-06-01] MEDS: atorvastatin 20mg tablet PO SCH (20:00)
[2021-06-01] MEDS: traZODone 50mg tablet PO SCH (20:00)
[2021-06-02] VITALS (23 sets, daily range): BP systolic 96–131; BP diastolic 40–72
[2021-06-02 03:20] LABS: BASOPHILS # (AUTO) 0.1 X10'3 (0-0.2); BASOPHILS % (AUTO) 0.5 % (0-1); EOSINOPHILS # (AUTO) 0.1 X10'3 (0-0.9); EOSINOPHILS % (AUTO) 0.9 % (0-6); HEMATOCRIT 26.3 % (42.0-52.0); HEMOGLOBIN 8.6 g/dl (14.0-17.9); LYMPHOCYTES # (AUTO) 0.8 X10'3 (1.1-4.8); LYMPHOCYTES % (AUTO) 6.3 % (21-51); MEAN CORPUSCULAR HEMOGLOBIN 30.5 PG (27.0-31.0); MEAN CORPUSCULAR HGB CONC 32.6 g/dL (33.0-36.5); MEAN CORPUSCULAR VOLUME 93.5 FL (78-98); MEAN PLATELET VOLUME 7.5 FL (7.4-10.4); MONOCYTES # (AUTO) 1.2 X10'3 (0-0.9); MONOCYTES % (AUTO) 9.2 % (2-12); NEUTROPHILS # (AUTO) 10.5 X10'3 (1.8-7.7); NEUTROPHILS % (AUTO) 83.1 % (42-75); PLATELET COUNT 203 X10'3 (140-440); RED BLOOD COUNT 2.81 X10'6 (4.70-6.10); RED CELL DISTRIBUTION WIDTH 14.5 % (11.5-14.5); WHITE BLOOD COUNT 12.7 X10'3 (4.5-11.0)
[2021-06-02 03:34] LABS: ABG BASE EXCESS 0.1 mmol/L (-2.0-2.0); ABG HCO3 22.9 mmol/L (22.0-26.0); ABG PCO2 (T) 29.4 mmHg (35.0-48.0); ABG PO2 (T) 97.3 mmHg (75.0-100.0); ALLEN'S TEST POSITIVE; FCOHb 0.5 % (0.0-3.9); FMetHb 0.3 % (0.0-1.5); FO2Hb 96.2 % (94-97); PATIENT TEMPERATURE 36.6; PEEP 5 cm H2O; RESPIRATORY RATE 14 b/min; TIDAL VOLUME 500 mL; TOTAL HEMOGLOBIN 8.2 G/dl (14.0-18.0)
[2021-06-02 03:46] LABS: ALANINE AMINOTRANSFERASE 24 U/L (12-78); ALBUMIN 2.1 G/DL (3.4-5.0); ALBUMIN/GLOBULIN RATIO 0.7 (1.1-1.5); ALKALINE PHOSPHATASE 69 IU/L (46-116); ANION GAP 12 (8-16); ASPARTATE AMINO TRANSFERASE 28 U/L (10-37); BILIRUBIN,TOTAL 0.5 MG/DL (0.1-1.0); BLOOD UREA NITROGEN 32 MG/DL (7-18); CALCIUM 7.5 MG/DL (8.5-10.1); CHLORIDE 104 MMOL/L (99-107); GLUCOSE 95 MG/DL (70-104); MAGNESIUM 2.2 MG/DL (1.5-2.4); PHOSPHORUS 3.3 MG/DL (2.3-4.5); POTASSIUM 3.6 MMOL/L (3.5-5.1); SODIUM 142 MMOL/L (135-145); TOTAL CARBON DIOXIDE 26.2 MMOL/L (24-32); TOTAL PROTEIN 5.1 G/DL (6.4-8.2); eGFR 15 ML/MIN
[2021-06-02] MEDS: DONEPEZIL 23 MG PO SCH (08:00)
[2021-06-02] MEDS: BUPRENORPHINE HCL PO SCH ×3 (08:00→21:00)
[2021-06-02] MEDS: NALOXONE HCL PO SCH ×3 (08:00→21:00)
[2021-06-02] MEDS: piperacillin/tazo 3.375gm/50ml 50 ML IV SCH ×2 (08:40→20:22)
[2021-06-02] MEDS: famotidine/PF 10 mg/ml inj IV SCH ×2 (08:40→20:14)
[2021-06-02] MEDS: heparin, porcine 5000 units/ml vial SQ SCH ×2 (08:40→20:15)
[2021-06-02] MEDS: midodrine 5mg tablet PO SCH ×3 (08:41→16:00)
[2021-06-02] MEDS: memantine 5mg tablet PO SCH (08:41)
[2021-06-02] MEDS: aspirin 81mg, enteric-coated 1 TAB TABLET.DR PO SCH (08:41)
[2021-06-02] MEDS: folic acid/vitamin B complex w/vitamin C 0.8mg tablet PO SCH (08:41)
[2021-06-02] MEDS: clopidogrel 75mg tablet PO SCH (08:42)
[2021-06-02] MEDS: tamsulosin 0.4mg capsule PO SCH (08:42)
[2021-06-02] MEDS: ferrous sulfate 325mg tablet PO SCH ×2 (08:42→20:23)
[2021-06-02] MEDS: folic acid 1mg tablet PO SCH (08:42)
[2021-06-02] MEDS: pantoprazole 40mg Tablet.DR PO SCH (08:42)
[2021-06-02] MEDS: furosemide 40mg tablet PO SCH (08:42)
[2021-06-02] MEDS: multivitamins, therapeutics tablet PO SCH ×2 (08:42→20:15)
[2021-06-02] MEDS: sevelamer carbonate 800mg tablet PO SCH ×3 (08:42→21:00)
[2021-06-02] MEDS: calcium acetate 667mg (PhosLO) capsule PO SCH ×3 (08:43→20:22)
[2021-06-02 08:59] LABS: HBSAG SCREEN Negative (Negative)
[2021-06-02] MEDS: fluconazole-Diflucan 100MG/NS 50 ML IV SCH (10:00)
--- NOTE | 2021-06-02 17:58 | NUR ---
Patient extubated at 1240. Jimmy well. No respiratory distress. On room air with sats in high 90's. Patient confused and requires very frequent orientation. Attempting to remove medical equipment and climb out of bed. Sitter in with patient.
--- NOTE | 2021-06-02 18:18 | NUR ---
I have received report and assumed care of pt, pt resting in bed, bedside FINISHED CIGAR [employer]KER in use for pts safty and to redirect this pleasently confused pt. assessment complete.
--- NOTE | 2021-06-02 18:23 | NUR ---
Problems reprioritized. Patient report given, questions answered & plan of care reviewed with Kayla SUAREZ.
[2021-06-02] MEDS: HYDROcodone/acetaminophen 5mg/325mg tablet PO PRN (18:51)
[2021-06-02] MEDS: lactobacillus rhamnosus 10,000 MMU CELLS/CAPSULE PO SCH (20:00)
[2021-06-02] MEDS: atorvastatin 20mg tablet PO SCH (20:23)
[2021-06-02] MEDS: traZODone 50mg tablet PO SCH (20:23)
[2021-06-02] MEDS: acetaminophen 325mg tablet PO PRN (22:32)
[2021-06-03] VITALS (17 sets, daily range): BP systolic 105–124; BP diastolic 42–55
[2021-06-03 02:34] LABS: BASOPHILS % (AUTO) 0.3 % (0-1); EOSINOPHILS # (AUTO) 0.3 X10'3 (0-0.9); EOSINOPHILS % (AUTO) 2.4 % (0-6); HEMATOCRIT 22.7 % (42.0-52.0); HEMOGLOBIN 7.5 g/dl (14.0-17.9); LYMPHOCYTES # (AUTO) 0.4 X10'3 (1.1-4.8); LYMPHOCYTES % (AUTO) 3.4 % (21-51); MEAN CORPUSCULAR HGB CONC 33.1 g/dL (33.0-36.5); MEAN CORPUSCULAR VOLUME 93.6 FL (78-98); MEAN PLATELET VOLUME 7.4 FL (7.4-10.4); MONOCYTES # (AUTO) 0.9 X10'3 (0-0.9); MONOCYTES % (AUTO) 8.2 % (2-12); NEUTROPHILS # (AUTO) 9.1 X10'3 (1.8-7.7); NEUTROPHILS % (AUTO) 85.7 % (42-75); PLATELET COUNT 209 X10'3 (140-440); RED BLOOD COUNT 2.43 X10'6 (4.70-6.10); RED CELL DISTRIBUTION WIDTH 14.5 % (11.5-14.5); WHITE BLOOD COUNT 10.6 X10'3 (4.5-11.0)
[2021-06-03 02:42] LABS: ALANINE AMINOTRANSFERASE 19 U/L (12-78); ALBUMIN 1.8 G/DL (3.4-5.0); ALBUMIN/GLOBULIN RATIO 0.6 (1.1-1.5); ALKALINE PHOSPHATASE 61 IU/L (46-116); ANION GAP 14 (8-16); ASPARTATE AMINO TRANSFERASE 28 U/L (10-37); BILIRUBIN,TOTAL 0.4 MG/DL (0.1-1.0); BLOOD UREA NITROGEN 36 MG/DL (7-18); BUN/CREATININE RATIO 6.8 (5.4-32.0); CALCIUM 7.3 MG/DL (8.5-10.1); CHLORIDE 106 MMOL/L (99-107); GLUCOSE 83 MG/DL (70-104); MAGNESIUM 2.3 MG/DL (1.5-2.4); PHOSPHORUS 4.2 MG/DL (2.3-4.5); POTASSIUM 3.6 MMOL/L (3.5-5.1); SODIUM 144 MMOL/L (135-145); TOTAL CARBON DIOXIDE 23.8 MMOL/L (24-32); TOTAL PROTEIN 4.6 G/DL (6.4-8.2); eGFR 11 ML/MIN
[2021-06-03] MEDS: HYDROcodone/acetaminophen 5mg/325mg tablet PO PRN ×2 (04:16→13:35)
[2021-06-03] MEDS: memantine 5mg tablet PO SCH (07:46)
[2021-06-03] MEDS: clopidogrel 75mg tablet PO SCH (07:46)
[2021-06-03] MEDS: pantoprazole 40mg Tablet.DR PO SCH (07:46)
[2021-06-03] MEDS: sevelamer carbonate 800mg tablet PO SCH ×3 (07:46→21:44)
[2021-06-03] MEDS: folic acid 1mg tablet PO SCH (07:46)
[2021-06-03] MEDS: beta-carotene(A) w/C & E + minerals tab PO SCH (07:47)
[2021-06-03] MEDS: lactobacillus rhamnosus 10,000 MMU CELLS/CAPSULE PO SCH ×2 (07:47→20:19)
[2021-06-03] MEDS: folic acid/vitamin B complex w/vitamin C 0.8mg tablet PO SCH (07:47)
[2021-06-03] MEDS: multivitamins, therapeutics tablet PO SCH ×2 (07:47→20:19)
[2021-06-03] MEDS: calcium acetate 667mg (PhosLO) capsule PO SCH ×3 (07:48→20:20)
[2021-06-03] MEDS: furosemide 40mg tablet PO SCH (07:49)
[2021-06-03] MEDS: midodrine 5mg tablet PO SCH ×3 (07:49→17:18)
[2021-06-03] MEDS: aspirin 81mg, enteric-coated 1 TAB TABLET.DR PO SCH (07:49)
[2021-06-03] MEDS: tamsulosin 0.4mg capsule PO SCH (07:58)
[2021-06-03] MEDS: ferrous sulfate 325mg tablet PO SCH ×2 (07:59→20:20)
[2021-06-03] MEDS: famotidine/PF 10 mg/ml inj IV SCH ×2 (08:00→20:19)
[2021-06-03] MEDS: heparin, porcine 5000 units/ml vial SQ SCH ×2 (08:00→20:20)
[2021-06-03] MEDS: DONEPEZIL 23 MG PO SCH (08:00)
[2021-06-03] MEDS: BUPRENORPHINE HCL PO SCH (08:00)
[2021-06-03] MEDS: piperacillin/tazo 3.375gm/50ml 50 ML IV SCH ×2 (08:00→20:39)
[2021-06-03] MEDS: NALOXONE HCL PO SCH (08:00)
--- NOTE | 2021-06-03 11:49 | NUR ---
Reassessment: Pt extubated 06/02 and OGT removed, though still NPO. Per RN, pt was able to pass gas today and awaiting MD consult tomorrow 06/04 to determine plan for feeding. Pt has been NPO since admission (4days). Pt to receive next HD tomorrow 06/04 per EMR. Will continue to monitor for diet advancement or nutrition support needs. Rec: 1. Advance diet as medically indicated to low-residue/renal 2. IF GI compromise or anticipated prolonged NPO post-op; consider non-E TPN to meet needs given hx ESRD on PD 3. IF PN; PALB Q / and daily wts 4. Bowel care per rx Addendum: 06/03/21 at [address] Amended: Links added.
[2021-06-03] MEDS ORDERED: heparin 1,000 units/ml 10ml inj IV ONE ×2 (12:35)
[2021-06-03] MEDS ORDERED: heparin 1,000 units/ml 10ml inj HE ONE (12:40)
[2021-06-03] MEDS: fluconazole-Diflucan 100MG/NS 50 ML IV SCH (13:33)
[2021-06-03] MEDS: buprenorphine/naloxone 8MG-2MG SUBlingual film SL SCH ×2 (14:28→20:40)
[2021-06-03] MEDS: acetaminophen 325mg tablet PO PRN (17:23)
--- NOTE | 2021-06-03 18:08 | NUR ---
Problems reprioritized. Patient report given, questions answered & plan of care reviewed with Giuseppe SUAREZ.
[2021-06-03] MEDS: atorvastatin 20mg tablet PO SCH (20:20)
[2021-06-03] MEDS: traZODone 50mg tablet PO SCH (20:20)
[2021-06-04] MEDS: HYDROcodone/acetaminophen 5mg/325mg tablet PO PRN ×2 (05:27→22:25)
[2021-06-04 06:00] VITALS: BP 128/60
[2021-06-04 06:07] LABS: BASOPHILS % (AUTO) 0.2 % (0-1); EOSINOPHILS # (AUTO) 0.4 X10'3 (0-0.9); EOSINOPHILS % (AUTO) 2.8 % (0-6); HEMOGLOBIN 8.9 g/dl (14.0-17.9); LYMPHOCYTES # (AUTO) 0.4 X10'3 (1.1-4.8); LYMPHOCYTES % (AUTO) 2.9 % (21-51); MEAN CORPUSCULAR HGB CONC 32.9 g/dL (33.0-36.5); MEAN CORPUSCULAR VOLUME 94.2 FL (78-98); MEAN PLATELET VOLUME 7.3 FL (7.4-10.4); MONOCYTES % (AUTO) 7.3 % (2-12); NEUTROPHILS # (AUTO) 12.4 X10'3 (1.8-7.7); NEUTROPHILS % (AUTO) 86.8 % (42-75); PLATELET COUNT 317 X10'3 (140-440); RED BLOOD COUNT 2.87 X10'6 (4.70-6.10); RED CELL DISTRIBUTION WIDTH 14.6 % (11.5-14.5); WHITE BLOOD COUNT 14.3 X10'3 (4.5-11.0)
[2021-06-04 06:49] LABS: ALANINE AMINOTRANSFERASE 21 U/L (12-78); ALBUMIN 2.2 G/DL (3.4-5.0); ALBUMIN/GLOBULIN RATIO 0.6 (1.1-1.5); ALKALINE PHOSPHATASE 73 IU/L (46-116); ANION GAP 12 (8-16); ASPARTATE AMINO TRANSFERASE 29 U/L (10-37); BILIRUBIN,TOTAL 0.5 MG/DL (0.1-1.0); BLOOD UREA NITROGEN 40 MG/DL (7-18); BUN/CREATININE RATIO 6.2 (5.4-32.0); CALCIUM 7.8 MG/DL (8.5-10.1); CHLORIDE 100 MMOL/L (99-107); CREATININE 6.44 MG/DL (0.60-1.10); GLUCOSE 97 MG/DL (70-104); MAGNESIUM 2.4 MG/DL (1.5-2.4); PHOSPHORUS 4.3 MG/DL (2.3-4.5); POTASSIUM 3.5 MMOL/L (3.5-5.1); SODIUM 138 MMOL/L (135-145); TOTAL CARBON DIOXIDE 25.9 MMOL/L (24-32); TOTAL PROTEIN 5.6 G/DL (6.4-8.2); eGFR 8 ML/MIN
--- NOTE | 2021-06-04 06:52 | NUR ---
Problems reprioritized. Patient report given, questions answered & plan of care reviewed with Marleen SUAREZ. Addendum: 06/04/21 at 0653 by Rolando Blum RN Amended: Links added.
[2021-06-04] MEDS: sevelamer carbonate 800mg tablet PO SCH ×3 (08:00→22:44)
[2021-06-04] MEDS: DONEPEZIL 23 MG PO SCH (08:00)
[2021-06-04] MEDS: OLANZAPINE 5 MG TABLET PO SCH (08:00)
[2021-06-04] MEDS ORDERED: heparin 1,000 units/ml 10ml inj HE ONE (09:20)
[2021-06-04] MEDS: midodrine 5mg tablet PO SCH ×3 (09:30→16:36)
[2021-06-04] MEDS: pantoprazole 40mg Tablet.DR PO SCH (09:30)
[2021-06-04] MEDS: tamsulosin 0.4mg capsule PO SCH (09:33)
[2021-06-04] MEDS: heparin, porcine 5000 units/ml vial SQ SCH ×2 (09:33→22:22)
[2021-06-04] MEDS: calcium acetate 667mg (PhosLO) capsule PO SCH ×3 (09:33→22:27)
[2021-06-04] MEDS: famotidine/PF 10 mg/ml inj IV SCH ×2 (09:33→22:15)
[2021-06-04] MEDS: buprenorphine/naloxone 8MG-2MG SUBlingual film SL SCH ×3 (09:34→22:45)
[2021-06-04] MEDS: multivitamins, therapeutics tablet PO SCH ×2 (09:34→22:27)
[2021-06-04] MEDS: beta-carotene(A) w/C & E + minerals tab PO SCH (09:34)
[2021-06-04] MEDS: ferrous sulfate 325mg tablet PO SCH ×2 (09:34→22:26)
[2021-06-04] MEDS: lactobacillus rhamnosus 10,000 MMU CELLS/CAPSULE PO SCH ×2 (09:34→22:25)
[2021-06-04] MEDS: aspirin 81mg, enteric-coated 1 TAB TABLET.DR PO SCH (09:34)
[2021-06-04] MEDS: folic acid 1mg tablet PO SCH (09:34)
[2021-06-04] MEDS: memantine 5mg tablet PO SCH (09:34)
[2021-06-04] MEDS: folic acid/vitamin B complex w/vitamin C 0.8mg tablet PO SCH (09:34)
[2021-06-04] MEDS: clopidogrel 75mg tablet PO SCH (09:34)
[2021-06-04] MEDS: fluconazole-Diflucan 100MG/NS 50 ML IV SCH (09:35)
[2021-06-04] MEDS: piperacillin/tazo 3.375gm/50ml 50 ML IV SCH ×2 (09:35→22:10)
[2021-06-04] MEDS: furosemide 40mg tablet PO SCH (09:35)
[2021-06-04 11:00] VITALS: BP 135/55
[2021-06-04] MEDS: acetaminophen 325mg tablet PO PRN (12:10)
--- NOTE | 2021-06-04 13:54 | NUR ---
PT BROUGHT IN HOME MEDICATION. MEDICATION WAS SENT TO PHARMACY.
[2021-06-04 15:00] VITALS: BP 124/61
[2021-06-04 18:00] VITALS: BP 134/64
--- NOTE | 2021-06-04 18:45 | NUR ---
Patient in room PCU 3023. I have received report from Darek SUAREZ and had the opportunity to ask questions and assume patient care.
--- NOTE | 2021-06-04 18:53 | NUR ---
Problems reprioritized. Patient report given, questions answered & plan of care reviewed with Romana SUAREZ.
[2021-06-04 22:00] VITALS: BP 142/59
[2021-06-04] MEDS: atorvastatin 20mg tablet PO SCH (22:28)
[2021-06-04] MEDS: traZODone 50mg tablet PO SCH (22:31)
[2021-06-05 02:00] VITALS: BP 135/67
[2021-06-05] MEDS: acetaminophen 325mg tablet PO PRN (02:51)
[2021-06-05 06:00] VITALS: BP 121/56
--- NOTE | 2021-06-05 06:40 | NUR ---
Problems reprioritized. Patient report given, questions answered & plan of care reviewed with Darek SUAREZ.
[2021-06-05 06:46] LABS: BASOPHILS % (AUTO) 0.2 % (0-1); EOSINOPHILS # (AUTO) 0.2 X10'3 (0-0.9); EOSINOPHILS % (AUTO) 0.8 % (0-6); HEMATOCRIT 25.4 % (42.0-52.0); HEMOGLOBIN 8.4 g/dl (14.0-17.9); LYMPHOCYTES # (AUTO) 0.2 X10'3 (1.1-4.8); MEAN CORPUSCULAR HEMOGLOBIN 30.9 PG (27.0-31.0); MEAN CORPUSCULAR VOLUME 93.5 FL (78-98); MEAN PLATELET VOLUME 7.2 FL (7.4-10.4); MONOCYTES # (AUTO) 1.7 X10'3 (0-0.9); MONOCYTES % (AUTO) 7.5 % (2-12); NEUTROPHILS # (AUTO) 20.1 X10'3 (1.8-7.7); NEUTROPHILS % (AUTO) 90.5 % (42-75); PLATELET COUNT 322 X10'3 (140-440); RED BLOOD COUNT 2.72 X10'6 (4.70-6.10); RED CELL DISTRIBUTION WIDTH 14.3 % (11.5-14.5); WHITE BLOOD COUNT 22.2 X10'3 (4.5-11.0)
[2021-06-05 06:49] LABS: ALANINE AMINOTRANSFERASE 20 U/L (12-78); ALBUMIN/GLOBULIN RATIO 0.6 (1.1-1.5); ALKALINE PHOSPHATASE 79 IU/L (46-116); ANION GAP 10 (8-16); ASPARTATE AMINO TRANSFERASE 27 U/L (10-37); BILIRUBIN,TOTAL 0.5 MG/DL (0.1-1.0); BLOOD UREA NITROGEN 21 MG/DL (7-18); BUN/CREATININE RATIO 4.6 (5.4-32.0); CALCIUM 7.7 MG/DL (8.5-10.1); CHLORIDE 102 MMOL/L (99-107); CREATININE 4.52 MG/DL (0.60-1.10); GLUCOSE 118 MG/DL (70-104); PHOSPHORUS 2.8 MG/DL (2.3-4.5); POTASSIUM 3.7 MMOL/L (3.5-5.1); SODIUM 140 MMOL/L (135-145); TOTAL PROTEIN 5.1 G/DL (6.4-8.2); eGFR 13 ML/MIN
[2021-06-05] MEDS: piperacillin/tazo 3.375gm/50ml 50 ML IV SCH ×2 (10:11→20:45)
[2021-06-05] MEDS: ferrous sulfate 325mg tablet PO SCH ×2 (10:21→20:52)
[2021-06-05] MEDS: aspirin 81mg, enteric-coated 1 TAB TABLET.DR PO SCH (10:21)
[2021-06-05] MEDS: calcium acetate 667mg (PhosLO) capsule PO SCH ×3 (10:21→20:53)
[2021-06-05] MEDS: heparin, porcine 5000 units/ml vial SQ SCH ×2 (10:21→20:47)
[2021-06-05] MEDS: beta-carotene(A) w/C & E + minerals tab PO SCH (10:21)
[2021-06-05] MEDS: sevelamer carbonate 800mg tablet PO SCH ×3 (10:22→20:52)
[2021-06-05] MEDS: tamsulosin 0.4mg capsule PO SCH (10:22)
[2021-06-05] MEDS: lactobacillus rhamnosus 10,000 MMU CELLS/CAPSULE PO SCH ×2 (10:22→20:53)
[2021-06-05] MEDS: OLANZAPINE 5 MG TABLET PO SCH (10:22)
[2021-06-05] MEDS: folic acid/vitamin B complex w/vitamin C 0.8mg tablet PO SCH (10:22)
[2021-06-05] MEDS: pantoprazole 40mg Tablet.DR PO SCH (10:23)
[2021-06-05] MEDS: memantine 5mg tablet PO SCH (10:23)
[2021-06-05] MEDS: furosemide 40mg tablet PO SCH (10:23)
[2021-06-05] MEDS: folic acid 1mg tablet PO SCH (10:23)
[2021-06-05] MEDS: clopidogrel 75mg tablet PO SCH (10:23)
[2021-06-05] MEDS: buprenorphine/naloxone 8MG-2MG SUBlingual film SL SCH ×3 (10:24→20:52)
[2021-06-05] MEDS: famotidine/PF 10 mg/ml inj IV SCH ×2 (10:24→20:46)
[2021-06-05] MEDS: multivitamins, therapeutics tablet PO SCH ×2 (10:24→20:53)
[2021-06-05] MEDS: DONEPEZIL 23 MG PO SCH (10:25)
[2021-06-05] MEDS: fluconazole-Diflucan 100MG/NS 50 ML IV SCH (10:29)
[2021-06-05 11:00] VITALS: BP 131/68
[2021-06-05] MEDS: midodrine 5mg tablet PO SCH ×3 (11:59→16:29)
[2021-06-05 16:00] VITALS: BP 138/73
--- NOTE | 2021-06-05 18:30 | NUR ---
Problems reprioritized. Patient report given, questions answered & plan of care reviewed with Taryn SUAREZ.
--- NOTE | 2021-06-05 18:35 | NUR ---
Patient in room PCU 3023. I have received report from Darek SUAREZ and had the opportunity to ask questions and assume patient care.
[2021-06-05 19:06] VITALS: BP 140/63
[2021-06-05] MEDS: traZODone 50mg tablet PO SCH (20:52)
[2021-06-05] MEDS: atorvastatin 20mg tablet PO SCH (20:53)
[2021-06-05 22:45] VITALS: BP 137/55
[2021-06-06 02:25] VITALS: BP 129/66
[2021-06-06 06:00] VITALS: BP 139/60
[2021-06-06 06:03] LABS: BASOPHILS % (AUTO) 0.2 % (0-1); EOSINOPHILS # (AUTO) 0.4 X10'3 (0-0.9); HEMATOCRIT 24.8 % (42.0-52.0); LYMPHOCYTES # (AUTO) 0.5 X10'3 (1.1-4.8); LYMPHOCYTES % (AUTO) 3.7 % (21-51); MEAN CORPUSCULAR HEMOGLOBIN 30.3 PG (27.0-31.0); MEAN CORPUSCULAR HGB CONC 32.1 g/dL (33.0-36.5); MEAN CORPUSCULAR VOLUME 94.3 FL (78-98); MONOCYTES # (AUTO) 1.6 X10'3 (0-0.9); MONOCYTES % (AUTO) 11.1 % (2-12); NEUTROPHILS # (AUTO) 12.1 X10'3 (1.8-7.7); PLATELET COUNT 322 X10'3 (140-440); RED BLOOD COUNT 2.63 X10'6 (4.70-6.10); RED CELL DISTRIBUTION WIDTH 14.4 % (11.5-14.5); WHITE BLOOD COUNT 14.8 X10'3 (4.5-11.0)
[2021-06-06 06:18] LABS: ALANINE AMINOTRANSFERASE 20 U/L (12-78); ALBUMIN 1.9 G/DL (3.4-5.0); ALBUMIN/GLOBULIN RATIO 0.7 (1.1-1.5); ALKALINE PHOSPHATASE 79 IU/L (46-116); ANION GAP 10 (8-16); ASPARTATE AMINO TRANSFERASE 29 U/L (10-37); BILIRUBIN,TOTAL 0.5 MG/DL (0.1-1.0); BLOOD UREA NITROGEN 27 MG/DL (7-18); BUN/CREATININE RATIO 4.9 (5.4-32.0); CALCIUM 7.5 MG/DL (8.5-10.1); CHLORIDE 104 MMOL/L (99-107); CREATININE 5.47 MG/DL (0.60-1.10); GLUCOSE 83 MG/DL (70-104); POTASSIUM 3.6 MMOL/L (3.5-5.1); SODIUM 141 MMOL/L (135-145); TOTAL CARBON DIOXIDE 27.3 MMOL/L (24-32); TOTAL PROTEIN 4.7 G/DL (6.4-8.2); eGFR 10 ML/MIN
--- NOTE | 2021-06-06 06:30 | NUR ---
Problems reprioritized. Patient report given, questions answered & plan of care reviewed with Darek SUAREZ.
[2021-06-06] MEDS: piperacillin/tazo 3.375gm/50ml 50 ML IV SCH ×2 (07:44→20:53)
[2021-06-06] MEDS: heparin, porcine 5000 units/ml vial SQ SCH ×2 (07:46→20:53)
[2021-06-06] MEDS: famotidine/PF 10 mg/ml inj IV SCH ×2 (07:46→20:53)
[2021-06-06] MEDS: clopidogrel 75mg tablet PO SCH (07:46)
[2021-06-06] MEDS: beta-carotene(A) w/C & E + minerals tab PO SCH (07:47)
[2021-06-06] MEDS: lactobacillus rhamnosus 10,000 MMU CELLS/CAPSULE PO SCH ×2 (07:47→20:53)
[2021-06-06] MEDS: OLANZAPINE 5 MG TABLET PO SCH (07:47)
[2021-06-06] MEDS: folic acid/vitamin B complex w/vitamin C 0.8mg tablet PO SCH (07:47)
[2021-06-06] MEDS: folic acid 1mg tablet PO SCH (07:47)
[2021-06-06] MEDS: aspirin 81mg, enteric-coated 1 TAB TABLET.DR PO SCH (07:47)
[2021-06-06] MEDS: multivitamins, therapeutics tablet PO SCH ×2 (07:47→20:52)
[2021-06-06] MEDS: ferrous sulfate 325mg tablet PO SCH ×2 (07:47→20:52)
[2021-06-06] MEDS: pantoprazole 40mg Tablet.DR PO SCH (07:47)
[2021-06-06] MEDS: tamsulosin 0.4mg capsule PO SCH (07:47)
[2021-06-06] MEDS: sevelamer carbonate 800mg tablet PO SCH ×3 (07:47→20:52)
[2021-06-06] MEDS: calcium acetate 667mg (PhosLO) capsule PO SCH ×3 (07:48→20:51)
[2021-06-06] MEDS: furosemide 40mg tablet PO SCH (07:48)
[2021-06-06] MEDS: memantine 5mg tablet PO SCH (07:48)
[2021-06-06] MEDS: buprenorphine/naloxone 8MG-2MG SUBlingual film SL SCH ×3 (07:48→20:51)
[2021-06-06] MEDS: midodrine 5mg tablet PO SCH ×3 (07:48→16:16)
[2021-06-06] MEDS: DONEPEZIL 23 MG PO SCH (07:49)
[2021-06-06] MEDS ORDERED: heparin 1,000unit/ml 10ml vial 10 ML IV ONE (08:00)
[2021-06-06] MEDS ORDERED: heparin 1,000 units/ml 10ml inj HE ONE ×2 (08:00)
[2021-06-06] MEDS ORDERED: EPOETIN ALFA-EPBX 20,000 UNIT/ML 1 ML MDV IV ONE (08:00)
[2021-06-06] MEDS ORDERED: normal saline 1000ml 250 ML IV PRN (08:00)
[2021-06-06 11:00] VITALS: BP 136/70
--- NOTE | 2021-06-06 12:01 | NUR ---
Dr. Erick bernabe: Dario Yao [id number]: PT states patient had slight left facial. Patient assessed no deficits. [id number]
[2021-06-06] MEDS: fluconazole-Diflucan 100MG/NS 50 ML IV SCH (14:04)
--- NOTE | 2021-06-06 14:14 | NUR ---
Reassessment: Patient's diet has been advanced to clear liquids and pt with average 50-75% PO intake, though not meeting estimated nutrient needs d/t current diet order. Discussed possible diet advancement with RN who reports awaiting surgeon evaluation prior to PO diet advancement. [facility] 06/05. Will continue to follow closely. Rec: 1. Advance to low residue renal diet as medically indicated 2. Monitor need for ONS/additional protein 3. Continue routine Phos binder 4. Bowel care per rx 5. Scaled weights with dialysis Addendum: 06/06/21 at [address] Amended: Links added.
[2021-06-06 15:00] VITALS: BP 132/71
[2021-06-06 19:00] VITALS: BP 126/94
[2021-06-06] MEDS: atorvastatin 20mg tablet PO SCH (20:52)
[2021-06-06] MEDS: traZODone 50mg tablet PO SCH (20:52)
[2021-06-06] MEDS: acetaminophen 325mg tablet PO PRN (23:52)
[2021-06-07] VITALS (7 sets, daily range): BP systolic 90–137; BP diastolic 47–72
[2021-06-07 06:02] LABS: BASOPHILS % (AUTO) 0.2 % (0-1); EOSINOPHILS # (AUTO) 0.4 X10'3 (0-0.9); EOSINOPHILS % (AUTO) 3.8 % (0-6); HEMATOCRIT 25.4 % (42.0-52.0); HEMOGLOBIN 8.1 g/dl (14.0-17.9); LYMPHOCYTES # (AUTO) 0.5 X10'3 (1.1-4.8); LYMPHOCYTES % (AUTO) 4.6 % (21-51); MEAN CORPUSCULAR HEMOGLOBIN 30.2 PG (27.0-31.0); MEAN CORPUSCULAR HGB CONC 31.8 g/dL (33.0-36.5); MEAN CORPUSCULAR VOLUME 94.8 FL (78-98); MEAN PLATELET VOLUME 6.9 FL (7.4-10.4); MONOCYTES # (AUTO) 1.3 X10'3 (0-0.9); MONOCYTES % (AUTO) 11.4 % (2-12); PLATELET COUNT 327 X10'3 (140-440); RED BLOOD COUNT 2.68 X10'6 (4.70-6.10); RED CELL DISTRIBUTION WIDTH 14.6 % (11.5-14.5); WHITE BLOOD COUNT 11.2 X10'3 (4.5-11.0)
[2021-06-07 06:21] LABS: ALANINE AMINOTRANSFERASE 24 U/L (12-78); ALBUMIN 1.9 G/DL (3.4-5.0); ALBUMIN/GLOBULIN RATIO 0.7 (1.1-1.5); ALKALINE PHOSPHATASE 81 IU/L (46-116); ANION GAP 8 (8-16); ASPARTATE AMINO TRANSFERASE 36 U/L (10-37); BILIRUBIN,TOTAL 0.5 MG/DL (0.1-1.0); BLOOD UREA NITROGEN 12 MG/DL (7-18); BUN/CREATININE RATIO 3.3 (5.4-32.0); CALCIUM 7.6 MG/DL (8.5-10.1); CHLORIDE 107 MMOL/L (99-107); CREATININE 3.64 MG/DL (0.60-1.10); GLUCOSE 78 MG/DL (70-104); MAGNESIUM 1.9 MG/DL (1.5-2.4); PHOSPHORUS 2.1 MG/DL (2.3-4.5); POTASSIUM 3.7 MMOL/L (3.5-5.1); SODIUM 143 MMOL/L (135-145); TOTAL CARBON DIOXIDE 28.2 MMOL/L (24-32); TOTAL PROTEIN 4.8 G/DL (6.4-8.2); eGFR 16 ML/MIN
[2021-06-07] MEDS: sevelamer carbonate 800mg tablet PO SCH ×3 (08:00→20:51)
[2021-06-07] MEDS: DONEPEZIL 23 MG PO SCH (08:00)
[2021-06-07] MEDS: piperacillin/tazo 3.375gm/50ml 50 ML IV SCH ×2 (09:09→20:49)
[2021-06-07] MEDS: OLANZAPINE 5 MG TABLET PO SCH (09:11)
[2021-06-07] MEDS: beta-carotene(A) w/C & E + minerals tab PO SCH (09:11)
[2021-06-07] MEDS: aspirin 81mg, enteric-coated 1 TAB TABLET.DR PO SCH (09:11)
[2021-06-07] MEDS: folic acid/vitamin B complex w/vitamin C 0.8mg tablet PO SCH (09:11)
[2021-06-07] MEDS: calcium acetate 667mg (PhosLO) capsule PO SCH ×3 (09:12→20:50)
[2021-06-07] MEDS: lactobacillus rhamnosus 10,000 MMU CELLS/CAPSULE PO SCH ×2 (09:12→20:50)
[2021-06-07] MEDS: midodrine 5mg tablet PO SCH ×3 (09:12→17:41)
[2021-06-07] MEDS: folic acid 1mg tablet PO SCH (09:13)
[2021-06-07] MEDS: ferrous sulfate 325mg tablet PO SCH ×2 (09:13→20:50)
[2021-06-07] MEDS: multivitamins, therapeutics tablet PO SCH ×2 (09:13→20:52)
[2021-06-07] MEDS: tamsulosin 0.4mg capsule PO SCH (09:13)
[2021-06-07] MEDS: furosemide 40mg tablet PO SCH (09:13)
[2021-06-07] MEDS: memantine 5mg tablet PO SCH (09:13)
[2021-06-07] MEDS: clopidogrel 75mg tablet PO SCH (09:14)
[2021-06-07] MEDS: buprenorphine/naloxone 8MG-2MG SUBlingual film SL SCH ×3 (09:14→20:50)
[2021-06-07] MEDS: pantoprazole 40mg Tablet.DR PO SCH (09:14)
[2021-06-07] MEDS: famotidine/PF 10 mg/ml inj IV SCH ×2 (09:15→20:49)
[2021-06-07] MEDS: heparin, porcine 5000 units/ml vial SQ SCH ×2 (09:15→20:00)
[2021-06-07] MEDS: fluconazole-Diflucan 100MG/NS 50 ML IV SCH (09:16)
--- NOTE | 2021-06-07 11:49 | NUR ---
Paged Dr Lowery for clarification PAGER ID: [phone] MESSAGE: Room 3023A. Dario Barillas. Do you want blood cultures frawn via IJ or stick or both? Thanks, Cari [phone]
--- NOTE | 2021-06-07 11:52 | NUR ---
Per Dr Lowery - phlebotomy to draw BC's - not thru IJ.
[2021-06-07] MEDS: normal saline 1000ml 1,000 ML IV SCH (13:13)
[2021-06-07] MEDS: acetaminophen 325mg tablet PO PRN ×2 (15:10→20:52)
--- NOTE | 2021-06-07 18:14 | NUR ---
Problems reprioritized. Patient report given, questions answered & plan of care reviewed with DANIELA Rapp.
--- NOTE | 2021-06-07 18:43 | NUR ---
Patient in room PCU 3023. I have received report from TAMMY SUAREZ and had the opportunity to ask questions and assume patient care.
--- NOTE | 2021-06-07 20:00 | NUR ---
DID NOT ADMINISTER HEPARIN. PATIENT BLEEDING FROM SURGICAL SITE AND MD AWARE. DRESSING REINFORCED BY PUTTING PRESSURE TO STOP THE BLEEDING.
[2021-06-07] MEDS: traZODone 50mg tablet PO SCH (20:51)
[2021-06-07] MEDS: atorvastatin 20mg tablet PO SCH (20:51)
[2021-06-08] MEDS: normal saline 1000ml 1,000 ML IV SCH ×2 (01:38→15:56)
[2021-06-08 02:00] VITALS: BP 129/57
[2021-06-08] MEDS: acetaminophen 325mg tablet PO PRN (05:39)
[2021-06-08 06:00] VITALS: BP 122/59
--- NOTE | 2021-06-08 06:28 | NUR ---
MD NOTIFIED OF BLOOD OOZING FROM THE INCISION SITE. HELD PRESSURE BUT COULD NOT FULLY STOP THE OOZING. DRESSING AGAIN FOR THE THIRD TIME REINFORCED WITH SATURATED DRESSING. CHARGE NURSE AWARE AND MD FOR NOC SHIFT WAS INFORMED. PER SURGEON,BREE, HE WILL ROUND ON PATIENT THIS MORNING.
--- NOTE | 2021-06-08 06:36 | NUR ---
Problems reprioritized. Patient report given, questions answered & plan of care reviewed with TAMMY SUAREZ.
[2021-06-08 06:38] LABS: BASOPHILS # (AUTO) 0.1 X10'3 (0-0.2); BASOPHILS % (AUTO) 0.6 % (0-1); EOSINOPHILS # (AUTO) 0.4 X10'3 (0-0.9); EOSINOPHILS % (AUTO) 3.4 % (0-6); HEMATOCRIT 27.2 % (42.0-52.0); LYMPHOCYTES # (AUTO) 0.7 X10'3 (1.1-4.8); LYMPHOCYTES % (AUTO) 5.5 % (21-51); MEAN CORPUSCULAR HGB CONC 33.1 g/dL (33.0-36.5); MEAN CORPUSCULAR VOLUME 93.6 FL (78-98); MEAN PLATELET VOLUME 6.9 FL (7.4-10.4); MONOCYTES # (AUTO) 1.4 X10'3 (0-0.9); MONOCYTES % (AUTO) 11.4 % (2-12); NEUTROPHILS # (AUTO) 9.9 X10'3 (1.8-7.7); NEUTROPHILS % (AUTO) 79.1 % (42-75); PLATELET COUNT 384 X10'3 (140-440); RED CELL DISTRIBUTION WIDTH 14.5 % (11.5-14.5); WHITE BLOOD COUNT 12.5 X10'3 (4.5-11.0)
[2021-06-08 06:42] LABS: ALANINE AMINOTRANSFERASE 29 U/L (12-78); ALBUMIN 2.2 G/DL (3.4-5.0); ALBUMIN/GLOBULIN RATIO 0.7 (1.1-1.5); ALKALINE PHOSPHATASE 92 IU/L (46-116); ANION GAP 5 (8-16); ASPARTATE AMINO TRANSFERASE 43 U/L (10-37); BILIRUBIN,TOTAL 0.5 MG/DL (0.1-1.0); BLOOD UREA NITROGEN 14 MG/DL (7-18); CALCIUM 7.8 MG/DL (8.5-10.1); CHLORIDE 104 MMOL/L (99-107); CREATININE 4.71 MG/DL (0.60-1.10); GLUCOSE 136 MG/DL (70-104); MAGNESIUM 1.8 MG/DL (1.5-2.4); PHOSPHORUS 1.7 MG/DL (2.3-4.5); POTASSIUM 3.4 MMOL/L (3.5-5.1); SODIUM 136 MMOL/L (135-145); TOTAL CARBON DIOXIDE 27.3 MMOL/L (24-32); TOTAL PROTEIN 5.3 G/DL (6.4-8.2); eGFR 12 ML/MIN
[2021-06-08] MEDS: clopidogrel 75mg tablet PO SCH (08:00)
[2021-06-08] MEDS: heparin, porcine 5000 units/ml vial SQ SCH ×2 (08:00→19:44)
[2021-06-08] MEDS: aspirin 81mg, enteric-coated 1 TAB TABLET.DR PO SCH (08:00)
[2021-06-08] MEDS: fluconazole-Diflucan 100MG/NS 50 ML IV SCH (08:43)
[2021-06-08] MEDS: piperacillin/tazo 3.375gm/50ml 50 ML IV SCH ×2 (08:43→19:53)
[2021-06-08] MEDS: famotidine/PF 10 mg/ml inj IV SCH ×2 (08:46→19:42)
[2021-06-08] MEDS: OLANZAPINE 5 MG TABLET PO SCH (08:47)
[2021-06-08] MEDS: furosemide 40mg tablet PO SCH (08:47)
[2021-06-08] MEDS: buprenorphine/naloxone 8MG-2MG SUBlingual film SL SCH ×3 (08:47→21:45)
[2021-06-08] MEDS: beta-carotene(A) w/C & E + minerals tab PO SCH (08:47)
[2021-06-08] MEDS: folic acid/vitamin B complex w/vitamin C 0.8mg tablet PO SCH (08:47)
[2021-06-08] MEDS: pantoprazole 40mg Tablet.DR PO SCH (08:48)
[2021-06-08] MEDS: folic acid 1mg tablet PO SCH (08:48)
[2021-06-08] MEDS: calcium acetate 667mg (PhosLO) capsule PO SCH ×2 (08:48→13:50)
[2021-06-08] MEDS: multivitamins, therapeutics tablet PO SCH ×2 (08:48→19:42)
[2021-06-08] MEDS: ferrous sulfate 325mg tablet PO SCH ×2 (08:48→19:42)
[2021-06-08] MEDS: memantine 5mg tablet PO SCH (08:48)
[2021-06-08] MEDS: sevelamer carbonate 800mg tablet PO SCH ×2 (08:48→13:50)
[2021-06-08] MEDS: midodrine 5mg tablet PO SCH ×3 (08:48→16:00)
[2021-06-08] MEDS: tamsulosin 0.4mg capsule PO SCH (08:49)
[2021-06-08] MEDS: lactobacillus rhamnosus 10,000 MMU CELLS/CAPSULE PO SCH ×2 (08:51→21:45)
--- NOTE | 2021-06-08 10:35 | NUR ---
Per Dr Lowery - hold asa 81 mg, plavix for today
[2021-06-08 11:00] VITALS: BP 134/64
--- NOTE | 2021-06-08 11:42 | NUR ---
PAGER ID: [phone] MESSAGE: Room 3023A. Dario Barillas. Pt is getting more agitated & confused. Redirection only works for seconds. PRNs? Thanks, Cari [phone]
--- NOTE | 2021-06-08 11:49 | NUR ---
MD aware - no new orders at this time other than to continue to monitor.
--- NOTE | 2021-06-08 13:56 | NUR ---
Reassessment: Diet has been advanced to full liquids and pt documented with 100% PO intake first meal since diet advancement. Noted patient's serum phosphorus is low and pt currently receiving two phos binders, d/w clinical pharmacist. LB 06/07. Will continue to follow closely and make recommendations as appropriate. Rec: 1. Advance to low residue renal diet as medically indicated 2. Monitor need for ONS/additional protein 3. Continue routine Phos binder 4. Bowel care per rx 5. Scaled weights with dialysis Addendum: 06/08/21 at [address] Amended: Links added.
[2021-06-08 15:00] VITALS: BP 139/63
--- NOTE | 2021-06-08 16:08 | NUR ---
Pt has been more confused today. He is being more compulsive in trying to get out of bed. Pt has been re-directed Q-encounter. Bed alarm is on and has been at bedside for a few hours. He is now sitting in chair with table in-front of him. Gait belt and tab alarm is on and audible.
[2021-06-08 18:00] VITALS: BP 129/65
--- NOTE | 2021-06-08 18:21 | NUR ---
Problems reprioritized. Patient report given, questions answered & plan of care reviewed with DANIELA Goodman.
[2021-06-08] MEDS: traZODone 50mg tablet PO SCH (21:44)
[2021-06-08] MEDS: atorvastatin 20mg tablet PO SCH (21:44)
[2021-06-08 22:00] VITALS: BP 105/45
[2021-06-09] MEDS ORDERED: magnesium Cl slow-release 64mg tablet PO PRN (00:20)
[2021-06-09] MEDS ORDERED: magnesium 4gm in 100ml NS 100 ML IV PRN (00:20)
[2021-06-09] MEDS ORDERED: potassium Cl 40MEQ/1/2NS 520ml 520 ML IV PRN (00:20)
[2021-06-09] MEDS ORDERED: potassium Cl 20 mEq SR tablet PO PRN ×2 (00:20)
--- NOTE | 2021-06-09 01:14 | NUR ---
Patient`s right IJ dressing changed, as old dressing noted loose. Sterile procedure followed, and patient was cooperative.
[2021-06-09 02:00] VITALS: BP 89/52
[2021-06-09] MEDS: normal saline 1000ml 1,000 ML IV SCH ×2 (03:37→20:56)
--- NOTE | 2021-06-09 04:10 | NUR ---
Patient alert and responsive, denies respiratory and physical distress presently. Patient attempting to pull out right IJ, and was educated on need and importance of the line. Patient refuses new normal saline bag, advised on need for it, but still declines. Will try again before shift ends.
[2021-06-09] MEDS: acetaminophen 325mg tablet PO PRN (04:50)
[2021-06-09 06:00] VITALS: BP 116/57
--- NOTE | 2021-06-09 06:31 | NUR ---
I AGREE WITH ASSMT DONE BY DANIELA JOHNSON AND VERBAL REPORT GIVEN TO TAMMY SUAREZ
[2021-06-09 07:05] LABS: BASOPHILS # (AUTO) 0.1 X10'3 (0-0.2); BASOPHILS % (AUTO) 0.6 % (0-1); EOSINOPHILS # (AUTO) 0.3 X10'3 (0-0.9); EOSINOPHILS % (AUTO) 2.2 % (0-6); HEMATOCRIT 25.6 % (42.0-52.0); HEMOGLOBIN 8.3 g/dl (14.0-17.9); LYMPHOCYTES # (AUTO) 0.5 X10'3 (1.1-4.8); MEAN CORPUSCULAR HEMOGLOBIN 30.7 PG (27.0-31.0); MEAN CORPUSCULAR HGB CONC 32.6 g/dL (33.0-36.5); MEAN CORPUSCULAR VOLUME 94.4 FL (78-98); MEAN PLATELET VOLUME 6.9 FL (7.4-10.4); MONOCYTES # (AUTO) 1.4 X10'3 (0-0.9); MONOCYTES % (AUTO) 9.5 % (2-12); NEUTROPHILS # (AUTO) 12.8 X10'3 (1.8-7.7); NEUTROPHILS % (AUTO) 84.7 % (42-75); PLATELET COUNT 341 X10'3 (140-440); RED BLOOD COUNT 2.71 X10'6 (4.70-6.10); RED CELL DISTRIBUTION WIDTH 14.8 % (11.5-14.5); WHITE BLOOD COUNT 15.1 X10'3 (4.5-11.0)
[2021-06-09 07:16] LABS: ALANINE AMINOTRANSFERASE 27 U/L (12-78); ALBUMIN 2.1 G/DL (3.4-5.0); ALBUMIN/GLOBULIN RATIO 0.7 (1.1-1.5); ALKALINE PHOSPHATASE 94 IU/L (46-116); ANION GAP 11 (8-16); ASPARTATE AMINO TRANSFERASE 38 U/L (10-37); BILIRUBIN,TOTAL 0.3 MG/DL (0.1-1.0); BLOOD UREA NITROGEN 17 MG/DL (7-18); BUN/CREATININE RATIO 3.1 (5.4-32.0); CALCIUM 7.4 MG/DL (8.5-10.1); CHLORIDE 107 MMOL/L (99-107); CREATININE 5.54 MG/DL (0.60-1.10); GLUCOSE 109 MG/DL (70-104); MAGNESIUM 1.7 MG/DL (1.5-2.4); PHOSPHORUS 2.1 MG/DL (2.3-4.5); POTASSIUM 3.9 MMOL/L (3.5-5.1); SODIUM 142 MMOL/L (135-145); TOTAL CARBON DIOXIDE 24.2 MMOL/L (24-32); eGFR 10 ML/MIN
[2021-06-09 07:36] LABS: PLATELET ESTIMATE NORMAL; POIKILOCYTOSIS FEW; POLYCHROMASIA FEW; TOTAL CELLS COUNTED 100
[2021-06-09] MEDS: heparin, porcine 5000 units/ml vial SQ SCH ×2 (08:00→20:54)
[2021-06-09] MEDS: K and/or MAG REPLACEMENT MC SCH ×2 (08:00→20:00)
[2021-06-09] MEDS: lactobacillus rhamnosus 10,000 MMU CELLS/CAPSULE PO SCH ×2 (09:40→20:53)
[2021-06-09] MEDS: aspirin 81mg, enteric-coated 1 TAB TABLET.DR PO SCH (09:40)
[2021-06-09] MEDS: folic acid/vitamin B complex w/vitamin C 0.8mg tablet PO SCH (09:40)
[2021-06-09] MEDS: tamsulosin 0.4mg capsule PO SCH (09:41)
[2021-06-09] MEDS: multivitamins, therapeutics tablet PO SCH ×2 (09:41→20:52)
[2021-06-09] MEDS: ferrous sulfate 325mg tablet PO SCH (09:41)
[2021-06-09] MEDS: folic acid 1mg tablet PO SCH (09:41)
[2021-06-09] MEDS: memantine 5mg tablet PO SCH (09:42)
[2021-06-09] MEDS: pantoprazole 40mg Tablet.DR PO SCH (09:42)
[2021-06-09] MEDS: OLANZAPINE 5 MG TABLET PO SCH (09:42)
[2021-06-09] MEDS: midodrine 5mg tablet PO SCH ×3 (09:42→15:15)
[2021-06-09] MEDS: buprenorphine/naloxone 8MG-2MG SUBlingual film SL SCH ×3 (09:42→20:53)
[2021-06-09] MEDS: beta-carotene(A) w/C & E + minerals tab PO SCH (09:42)
[2021-06-09] MEDS: furosemide 40mg tablet PO SCH (09:42)
[2021-06-09] MEDS: famotidine/PF 10 mg/ml inj IV SCH (09:43)
[2021-06-09] MEDS: clopidogrel 75mg tablet PO SCH (10:38)
[2021-06-09 11:00] VITALS: BP 129/63
--- NOTE | 2021-06-09 12:30 | NUR ---
Per MD steffany borges to give plavix and 81mg asa. Hold heparin.
[2021-06-09] MEDS: metroNIDAZOLE-Flagyl 500mg/NS 100 ML IV SCH ×2 (14:16→20:52)
[2021-06-09] MEDS ORDERED: heparin 1,000unit/ml 10ml vial 10 ML IV ONE (14:40)
[2021-06-09] MEDS ORDERED: normal saline 1000ml 250 ML IV PRN (14:40)
[2021-06-09] MEDS ORDERED: EPOETIN ALFA-EPBX 20,000 UNIT/ML 1 ML MDV IV ONE (14:40)
[2021-06-09] MEDS ORDERED: heparin 1,000 units/ml 10ml inj HE ONE ×2 (14:45)
[2021-06-09 15:00] VITALS: BP 125/58
--- NOTE | 2021-06-09 16:18 | NUR ---
Per pharmacy - miss 1st dose of flagyl d/t pt undergoing HD. 2nd dose to be hung at scheduled time 1999.
--- NOTE | 2021-06-09 17:49 | NUR ---
Pt has been sleeping for most of the day. He is easily aroused and was able to use the urinal without assistance. Family was at bedside for most of the afternoon. HD in progress and the goal is to take off 1L. Per Dr Severo borges to advance diet to HH. Completed. Will continue to monitor.
--- NOTE | 2021-06-09 18:41 | NUR ---
Problems reprioritized. Patient report given, questions answered & plan of care reviewed with DANIELA Regalado.
--- NOTE | 2021-06-09 18:48 | NUR ---
Problems reprioritized. Patient report given, questions answered & plan of care reviewed with DANIELA Ca.
[2021-06-09 19:00] VITALS: BP 114/57
[2021-06-09] MEDS: traZODone 50mg tablet PO SCH (20:53)
[2021-06-09] MEDS: atorvastatin 20mg tablet PO SCH (20:53)
[2021-06-09 22:00] VITALS: BP 92/44
[2021-06-10 02:00] VITALS: BP 105/43
[2021-06-10 05:07] LABS: BASOPHILS % (AUTO) 0.3 % (0-1); EOSINOPHILS # (AUTO) 0.5 X10'3 (0-0.9); HEMATOCRIT 24.7 % (42.0-52.0); HEMOGLOBIN 8.1 g/dl (14.0-17.9); LYMPHOCYTES # (AUTO) 0.6 X10'3 (1.1-4.8); LYMPHOCYTES % (AUTO) 3.7 % (21-51); MEAN CORPUSCULAR HEMOGLOBIN 31.1 PG (27.0-31.0); MEAN CORPUSCULAR HGB CONC 32.8 g/dL (33.0-36.5); MEAN CORPUSCULAR VOLUME 94.8 FL (78-98); MEAN PLATELET VOLUME 7.1 FL (7.4-10.4); MONOCYTES # (AUTO) 1.7 X10'3 (0-0.9); MONOCYTES % (AUTO) 10.5 % (2-12); NEUTROPHILS # (AUTO) 13.3 X10'3 (1.8-7.7); NEUTROPHILS % (AUTO) 82.5 % (42-75); PLATELET COUNT 371 X10'3 (140-440); RED CELL DISTRIBUTION WIDTH 14.8 % (11.5-14.5); WHITE BLOOD COUNT 16.1 X10'3 (4.5-11.0)
[2021-06-10 05:20] LABS: ALANINE AMINOTRANSFERASE 24 U/L (12-78); ALBUMIN 1.8 G/DL (3.4-5.0); ALBUMIN/GLOBULIN RATIO 0.6 (1.1-1.5); ALKALINE PHOSPHATASE 88 IU/L (46-116); ANION GAP 7 (8-16); ASPARTATE AMINO TRANSFERASE 35 U/L (10-37); BILIRUBIN,TOTAL 0.3 MG/DL (0.1-1.0); BLOOD UREA NITROGEN 7 MG/DL (7-18); BUN/CREATININE RATIO 2.1 (5.4-32.0); CALCIUM 6.9 MG/DL (8.5-10.1); CHLORIDE 108 MMOL/L (99-107); CREATININE 3.28 MG/DL (0.60-1.10); GLUCOSE 95 MG/DL (70-104); MAGNESIUM 1.7 MG/DL (1.5-2.4); PHOSPHORUS 1.8 MG/DL (2.3-4.5); POTASSIUM 3.6 MMOL/L (3.5-5.1); SODIUM 143 MMOL/L (135-145); TOTAL CARBON DIOXIDE 28.5 MMOL/L (24-32); TOTAL PROTEIN 4.6 G/DL (6.4-8.2); eGFR 18 ML/MIN
[2021-06-10 05:34] LABS: TOTAL CELLS COUNTED 100
[2021-06-10 05:35] LABS: PLATELET ESTIMATE NORMAL
[2021-06-10 05:36] LABS: ANISOCYTOSIS FEW; POIKILOCYTOSIS FEW; POLYCHROMASIA FEW
[2021-06-10 06:00] VITALS: BP 108/57
--- NOTE | 2021-06-10 06:54 | NUR ---
Patient in room PCU 3014. I have received report from Sabine sanches and had the opportunity to ask questions and assume patient care.
[2021-06-10] MEDS ORDERED: famotidine 20mg tablet PO SCH (08:00)
[2021-06-10] MEDS: K and/or MAG REPLACEMENT MC SCH ×2 (08:00→20:00)
[2021-06-10] MEDS: heparin, porcine 5000 units/ml vial SQ SCH ×2 (08:00→19:42)
[2021-06-10] MEDS: OLANZAPINE 5 MG TABLET PO SCH (08:15)
[2021-06-10] MEDS: tamsulosin 0.4mg capsule PO SCH (08:15)
[2021-06-10] MEDS: clopidogrel 75mg tablet PO SCH (08:15)
[2021-06-10] MEDS: beta-carotene(A) w/C & E + minerals tab PO SCH (08:15)
[2021-06-10] MEDS: memantine 5mg tablet PO SCH (08:15)
[2021-06-10] MEDS: buprenorphine/naloxone 8MG-2MG SUBlingual film SL SCH ×3 (08:15→21:14)
[2021-06-10] MEDS: folic acid/vitamin B complex w/vitamin C 0.8mg tablet PO SCH (08:15)
[2021-06-10] MEDS: furosemide 40mg tablet PO SCH (08:15)
[2021-06-10] MEDS: multivitamins, therapeutics tablet PO SCH ×2 (08:16→19:44)
[2021-06-10] MEDS: lactobacillus rhamnosus 10,000 MMU CELLS/CAPSULE PO SCH ×2 (08:16→19:41)
[2021-06-10] MEDS: midodrine 5mg tablet PO SCH ×3 (08:16→16:09)
[2021-06-10] MEDS: pantoprazole 40mg Tablet.DR PO SCH (08:16)
[2021-06-10] MEDS: aspirin 81mg, enteric-coated 1 TAB TABLET.DR PO SCH (08:16)
[2021-06-10] MEDS: metroNIDAZOLE-Flagyl 500mg/NS 100 ML IV SCH ×2 (08:17→19:41)
[2021-06-10] MEDS ORDERED: LIDOcaine 1% (10mg/ml) 2ml vial SQ ONE (10:30)
--- NOTE | 2021-06-10 10:54 | NUR ---
Page Sent PAGER ID: [phone] MESSAGE: [phone] Eran, I have all supplies ready at bedside for suturing. helena [phone]
[2021-06-10 11:00] VITALS: BP 114/52
--- NOTE | 2021-06-10 11:55 | NUR ---
PT WOUND WAS STITCHED IN 3 PLACES, STERI STRIPES PLACED WELL, AND DRESSING CHANGED WITH DR TAPIA. WOUND LOOKS GOOD AND IS WELL APPROXIMATING.
[2021-06-10] MEDS: normal saline 1000ml 1,000 ML IV SCH (13:24)
[2021-06-10 15:00] VITALS: BP 111/54
[2021-06-10 18:00] VITALS: BP 103/45
--- NOTE | 2021-06-10 18:24 | NUR ---
Problems reprioritized. Patient report given, questions answered & plan of care reviewed with FARRAH SUAREZ.
[2021-06-10] MEDS: atorvastatin 20mg tablet PO SCH (21:14)
[2021-06-10] MEDS: traZODone 50mg tablet PO SCH (21:14)
[2021-06-10] MEDS: ciprofloxacin lact 400MG/200ML 200 ML IV SCH (21:15)
[2021-06-10 22:00] VITALS: BP 137/60
[2021-06-11] MEDS: normal saline 1000ml 1,000 ML IV SCH ×2 (01:08→19:54)
[2021-06-11 02:00] VITALS: BP 115/55
[2021-06-11 05:37] LABS: ALANINE AMINOTRANSFERASE 26 U/L (12-78); ALBUMIN 1.8 G/DL (3.4-5.0); ALBUMIN/GLOBULIN RATIO 0.6 (1.1-1.5); ALKALINE PHOSPHATASE 89 IU/L (46-116); ANION GAP 6 (8-16); ASPARTATE AMINO TRANSFERASE 34 U/L (10-37); BILIRUBIN,TOTAL 0.3 MG/DL (0.1-1.0); BLOOD UREA NITROGEN 11 MG/DL (7-18); BUN/CREATININE RATIO 2.5 (5.4-32.0); CALCIUM 6.7 MG/DL (8.5-10.1); CHLORIDE 110 MMOL/L (99-107); CREATININE 4.41 MG/DL (0.60-1.10); GLUCOSE 87 MG/DL (70-104); MAGNESIUM 1.8 MG/DL (1.5-2.4); PHOSPHORUS 2.3 MG/DL (2.3-4.5); POTASSIUM 3.5 MMOL/L (3.5-5.1); SODIUM 143 MMOL/L (135-145); TOTAL CARBON DIOXIDE 27.1 MMOL/L (24-32); TOTAL PROTEIN 4.6 G/DL (6.4-8.2); eGFR 13 ML/MIN
[2021-06-11 05:43] LABS: BASOPHILS # (AUTO) 0.1 X10'3 (0-0.2); BASOPHILS % (AUTO) 0.7 % (0-1); EOSINOPHILS # (AUTO) 0.4 X10'3 (0-0.9); EOSINOPHILS % (AUTO) 2.4 % (0-6); HEMATOCRIT 24.7 % (42.0-52.0); LYMPHOCYTES # (AUTO) 0.7 X10'3 (1.1-4.8); LYMPHOCYTES % (AUTO) 4.1 % (21-51); MEAN CORPUSCULAR HEMOGLOBIN 30.9 PG (27.0-31.0); MEAN CORPUSCULAR HGB CONC 32.4 g/dL (33.0-36.5); MEAN CORPUSCULAR VOLUME 95.5 FL (78-98); MONOCYTES # (AUTO) 1.6 X10'3 (0-0.9); MONOCYTES % (AUTO) 9.9 % (2-12); NEUTROPHILS # (AUTO) 13.6 X10'3 (1.8-7.7); NEUTROPHILS % (AUTO) 82.9 % (42-75); PLATELET COUNT 407 X10'3 (140-440); RED BLOOD COUNT 2.59 X10'6 (4.70-6.10); RED CELL DISTRIBUTION WIDTH 15.7 % (11.5-14.5); WHITE BLOOD COUNT 16.5 X10'3 (4.5-11.0)
[2021-06-11 07:16] LABS: PLATELET ESTIMATE NORMAL; TOTAL CELLS COUNTED 100
[2021-06-11 07:17] LABS: ANISOCYTOSIS FEW; HYPERSEGMENTED NEUTROPHILS FEW; POIKILOCYTOSIS FEW
[2021-06-11 07:18] LABS: POLYCHROMASIA FEW
[2021-06-11 08:00] VITALS: BP 105/49
[2021-06-11] MEDS: K and/or MAG REPLACEMENT MC SCH ×2 (08:00→20:00)
[2021-06-11] MEDS: ciprofloxacin lact 400MG/200ML 200 ML IV SCH ×2 (09:18→19:47)
[2021-06-11] MEDS: multivitamins, therapeutics tablet PO SCH ×2 (09:21→19:48)
[2021-06-11] MEDS: pantoprazole 40mg Tablet.DR PO SCH (09:21)
[2021-06-11] MEDS: memantine 5mg tablet PO SCH (09:21)
[2021-06-11] MEDS: lactobacillus rhamnosus 10,000 MMU CELLS/CAPSULE PO SCH ×2 (09:21→19:47)
[2021-06-11] MEDS: aspirin 81mg, enteric-coated 1 TAB TABLET.DR PO SCH (09:21)
[2021-06-11] MEDS: folic acid/vitamin B complex w/vitamin C 0.8mg tablet PO SCH (09:21)
[2021-06-11] MEDS: clopidogrel 75mg tablet PO SCH (09:21)
[2021-06-11] MEDS: furosemide 40mg tablet PO SCH (09:21)
[2021-06-11] MEDS: tamsulosin 0.4mg capsule PO SCH (09:22)
[2021-06-11] MEDS: OLANZAPINE 5 MG TABLET PO SCH (09:22)
[2021-06-11] MEDS: midodrine 5mg tablet PO SCH ×3 (09:22→16:14)
[2021-06-11] MEDS: buprenorphine/naloxone 8MG-2MG SUBlingual film SL SCH ×3 (09:22→21:10)
[2021-06-11] MEDS: beta-carotene(A) w/C & E + minerals tab PO SCH (09:22)
[2021-06-11] MEDS: heparin, porcine 5000 units/ml vial SQ SCH ×2 (09:23→19:48)
[2021-06-11] MEDS: metroNIDAZOLE-Flagyl 500mg/NS 100 ML IV SCH ×2 (10:48→19:46)
[2021-06-11 11:00] VITALS: BP 130/56
--- NOTE | 2021-06-11 12:24 | NUR ---
Reassessment: Pt advanced to CCHO/Heart healthy diet 06/09 w/ avg intake 33% x 7 meals, not meeting needs. Per MD note, pt to get HD on Tuesday 06/12 w/ a / schedule. Pt may benefit from ONS at this time to help meet energy and protein needs while on dialysis. TC w/ RN recommendation to d/c CCHO diet as pt does not have hx of DM and blood sugar is well controlled. [facility] 06/08. Will continue to monitor and adjust recommendations as medically indicated. Rec: 1. Continue Heart healthy diet, d/c CCHO diet 2. Nepro TID to provide 1275kcals and 57g protein if consumed 100% 3. Continue routine Phos binder 4. Bowel care per rx 5. Scaled weights with dialysis Addendum: 06/11/21 at [address] Amended: Links added.
[2021-06-11] MEDS ORDERED: NUT.TX.IMP.RENAL FXN,LAC-REDUC (Nepro) 237 ML VANILLA PO SCH (13:00)
[2021-06-11 18:00] VITALS: BP 111/56
--- NOTE | 2021-06-11 18:30 | NUR ---
Patient in room PCU 3014A. I have received report from DANIELA Oswald and had the opportunity to ask questions and assume patient care.
--- NOTE | 2021-06-11 18:31 | NUR ---
Problems reprioritized. Patient report given, questions answered & plan of care reviewed with Elma SUAREZ.
[2021-06-11] MEDS: traZODone 50mg tablet PO SCH (21:10)
[2021-06-11] MEDS: atorvastatin 20mg tablet PO SCH (21:10)
[2021-06-11 22:00] VITALS: BP 124/54
[2021-06-12 02:00] VITALS: BP 101/46
[2021-06-12 06:00] VITALS: BP 109/45
--- NOTE | 2021-06-12 06:09 | NUR ---
Problems reprioritized. Patient report given, questions answered & plan of care reviewed with DANIELA Oswald.
--- NOTE | 2021-06-12 06:09 | NUR ---
Student documentation: I have reviewed and agree with all interventions, assessments performed and documented by Mahin, Student Nurse.
[2021-06-12 06:54] LABS: BASOPHILS # (AUTO) 0.1 X10'3 (0-0.2); BASOPHILS % (AUTO) 0.5 % (0-1); EOSINOPHILS # (AUTO) 0.3 X10'3 (0-0.9); EOSINOPHILS % (AUTO) 2.4 % (0-6); HEMATOCRIT 23.9 % (42.0-52.0); HEMOGLOBIN 7.8 g/dl (14.0-17.9); LYMPHOCYTES # (AUTO) 0.7 X10'3 (1.1-4.8); LYMPHOCYTES % (AUTO) 5.1 % (21-51); MEAN CORPUSCULAR HEMOGLOBIN 31.2 PG (27.0-31.0); MEAN CORPUSCULAR HGB CONC 32.6 g/dL (33.0-36.5); MEAN CORPUSCULAR VOLUME 95.5 FL (78-98); MONOCYTES # (AUTO) 1.7 X10'3 (0-0.9); NEUTROPHILS # (AUTO) 10.1 X10'3 (1.8-7.7); PLATELET COUNT 390 X10'3 (140-440); RED CELL DISTRIBUTION WIDTH 15.4 % (11.5-14.5); WHITE BLOOD COUNT 12.8 X10'3 (4.5-11.0)
[2021-06-12 07:21] LABS: ALANINE AMINOTRANSFERASE 21 U/L (12-78); ALBUMIN 1.7 G/DL (3.4-5.0); ALBUMIN/GLOBULIN RATIO 0.6 (1.1-1.5); ALKALINE PHOSPHATASE 80 IU/L (46-116); ANION GAP 9 (8-16); ASPARTATE AMINO TRANSFERASE 27 U/L (10-37); BILIRUBIN,TOTAL 0.3 MG/DL (0.1-1.0); BLOOD UREA NITROGEN 15 MG/DL (7-18); BUN/CREATININE RATIO 2.9 (5.4-32.0); CALCIUM 6.7 MG/DL (8.5-10.1); CHLORIDE 111 MMOL/L (99-107); CREATININE 5.13 MG/DL (0.60-1.10); GLUCOSE 90 MG/DL (70-104); MAGNESIUM 1.7 MG/DL (1.5-2.4); PHOSPHORUS 2.5 MG/DL (2.3-4.5); POTASSIUM 3.6 MMOL/L (3.5-5.1); SODIUM 144 MMOL/L (135-145); TOTAL CARBON DIOXIDE 24.4 MMOL/L (24-32); TOTAL PROTEIN 4.4 G/DL (6.4-8.2); eGFR 11 ML/MIN
[2021-06-12 07:39] LABS: TOTAL CELLS COUNTED 100
[2021-06-12 07:40] LABS: PLATELET ESTIMATE NORMAL; POLYCHROMASIA FEW
[2021-06-12 07:42] LABS: POIKILOCYTOSIS FEW
[2021-06-12] MEDS: metroNIDAZOLE-Flagyl 500mg/NS 100 ML IV SCH (07:42)
[2021-06-12] MEDS: memantine 5mg tablet PO SCH (07:43)
[2021-06-12] MEDS: multivitamins, therapeutics tablet PO SCH (07:43)
[2021-06-12] MEDS: aspirin 81mg, enteric-coated 1 TAB TABLET.DR PO SCH (07:43)
[2021-06-12] MEDS: buprenorphine/naloxone 8MG-2MG SUBlingual film SL SCH ×2 (07:43→12:24)
[2021-06-12] MEDS: OLANZAPINE 5 MG TABLET PO SCH (07:43)
[2021-06-12] MEDS: folic acid/vitamin B complex w/vitamin C 0.8mg tablet PO SCH (07:43)
[2021-06-12] MEDS: lactobacillus rhamnosus 10,000 MMU CELLS/CAPSULE PO SCH (07:43)
[2021-06-12] MEDS: midodrine 5mg tablet PO SCH ×2 (07:44→12:24)
[2021-06-12] MEDS: beta-carotene(A) w/C & E + minerals tab PO SCH (07:44)
[2021-06-12] MEDS: furosemide 40mg tablet PO SCH (07:44)
[2021-06-12] MEDS: pantoprazole 40mg Tablet.DR PO SCH (07:44)
[2021-06-12] MEDS: tamsulosin 0.4mg capsule PO SCH (07:44)
[2021-06-12] MEDS: clopidogrel 75mg tablet PO SCH (07:44)
[2021-06-12] MEDS: heparin, porcine 5000 units/ml vial SQ SCH (07:45)
[2021-06-12] MEDS: K and/or MAG REPLACEMENT MC SCH (08:00)
[2021-06-12] MEDS: ciprofloxacin lact 400MG/200ML 200 ML IV SCH (09:12)
[2021-06-12] MEDS ORDERED: METR500T PO (10:18)
[2021-06-12] MEDS ORDERED: CIPR-202 PO (10:18)
[2021-06-12 11:00] VITALS: BP 107/60
--- NOTE | 2021-06-12 13:31 | NUR ---
SUTURES REMOVED, IJ D/C'D CANNULA INTACT. PRESSURE HELD AT SITE FOR 5 MIN. PT TOL. WILLIAM.
--- NOTE | 2021-06-12 14:05 | NUR ---
PATIENT STABLE FOR DISCHARGE PER MD ORDERS. ALL DISCHARGE INSTRUCTIONS REVIEWED WITH PATIENT AND ALL QUESTIONS ANSWERED. PATIENT WILL MAKE OWN FOLLOW UP APPOINTMENT WITH PCP WITHIN ONE WEEK, THE PATIENT IS SCHEDULED FOR HD TODAY. NEW RX'S E-SCRIPTED TO [facility] IN [place], [place]. IJ DISCONTINUED WITH CANNULA INTACT. TELEMETRY DISCONTINUED. BELONGINGS COLLECTED AND SENT WITH PATIENT. [facility].
== END 2021-06-12 14:50 | disposition home or self-care (01) | DRG 329 ==
LOC: ER 12:13 → ED HOLD 16:12 → ICU 2S 18:51 → PCU 3S 06-03 16:33
PROVIDERS: ADMIT Internal Medicine Critical Care Medicine; ATTEND Internal Medicine Critical Care Medicine
PROC: B4201ZZ Computerized Tomography (CT Scan) of Abdominal Aorta using Low Osmolar Contrast (ICD-10-PCS; 2021-05-30)
PROC: B4241ZZ Computerized Tomography (CT Scan) of Superior Mesenteric Artery using Low Osmolar Contrast (ICD-10-PCS; 2021-05-30)
PROC: B4281ZZ Computerized Tomography (CT Scan) of Bilateral Renal Arteries using Low Osmolar Contrast (ICD-10-PCS; 2021-05-30)
PROC: B42C1ZZ Computerized Tomography (CT Scan) of Pelvic Arteries using Low Osmolar Contrast (ICD-10-PCS; 2021-05-30)
PROC: B42H1ZZ Computerized Tomography (CT Scan) of Bilateral Lower Extremity Arteries using Low Osmolar Contrast (ICD-10-PCS; 2021-05-30)
PROC: B4211ZZ Computerized Tomography (CT Scan) of Celiac Artery using Low Osmolar Contrast (ICD-10-PCS; 2021-05-30)
PROC: 02HV33Z Insertion of Infusion Device into Superior Vena Cava, Percutaneous Approach (ICD-10-PCS; 2021-05-30)
PROC: B548ZZA Ultrasonography of Superior Vena Cava, Guidance (ICD-10-PCS; 2021-05-30)
PROC: 03HY32Z Insertion of Monitoring Device into Upper Artery, Percutaneous Approach (ICD-10-PCS; 2021-05-30)
PROC: 0DTH0ZZ Resection of Cecum, Open Approach (ICD-10-PCS; principal; 2021-05-30 16:56)
PROC: 0JH63XZ Insertion of Tunneled Vascular Access Device into Chest Subcutaneous Tissue and Fascia, Percutaneous Approach (ICD-10-PCS; 2021-05-31)
PROC: 02HV33Z Insertion of Infusion Device into Superior Vena Cava, Percutaneous Approach (ICD-10-PCS; 2021-05-31)
PROC: B548ZZA Ultrasonography of Superior Vena Cava, Guidance (ICD-10-PCS; 2021-05-31)
PROC: B5181ZA Fluoroscopy of Superior Vena Cava using Low Osmolar Contrast, Guidance (ICD-10-PCS; 2021-05-31)
PROC: 30233N1 Transfusion of Nonautologous Red Blood Cells into Peripheral Vein, Percutaneous Approach (ICD-10-PCS; 2021-05-31)
PROC: 5A1D70Z Performance of Urinary Filtration, Intermittent, Less than 6 Hours Per Day (ICD-10-PCS; 2021-06-01)
PROC: 5A1D70Z Performance of Urinary Filtration, Intermittent, Less than 6 Hours Per Day (ICD-10-PCS; 2021-06-04)
PROC: 5A1D70Z Performance of Urinary Filtration, Intermittent, Less than 6 Hours Per Day (ICD-10-PCS; 2021-06-06)
PROC: 5A1D70Z Performance of Urinary Filtration, Intermittent, Less than 6 Hours Per Day (ICD-10-PCS; 2021-06-09)
DX: K55.9 Vascular disorder of intestine, unspecified (principal); K56.2 Volvulus; N18.6 End stage renal disease; E87.2 Acidosis; R18.8 Other ascites; D64.9 Anemia, unspecified; E11.22 Type 2 diabetes mellitus with diabetic chronic kidney disease; I25.10 Atherosclerotic heart disease of native coronary artery without angina pectoris; E87.6 Hypokalemia; K40.90 Unilateral inguinal hernia, without obstruction or gangrene, not specified as recurrent; G89.29 Other chronic pain; I95.89 Other hypotension; Z99.2 Dependence on renal dialysis; Z95.1 Presence of aortocoronary bypass graft; Z91.041 Radiographic dye allergy status; Z79.899 Other long term (current) drug therapy; Z79.82 Long term (current) use of aspirin; R58 Hemorrhage, not elsewhere classified
CPT/HCPCS: 36415; 36430; 36558; 36600; 71045; 74174; 74176; 76937; 77001; 80053; 81001; 82803; 82948; 83605; 83735; 84100; 84145; 85007; 85018; 85025; 85027; 85610; 85730; 86885; 86900; 86901; 86920; 87040; 87340; 88307; 93005; 94002; 94003; 94760; 94799; 96361; 96374; 96375; 97110; 97116; 97162; 97530; 99291; A4618; A6449; A7000; C1751; C1758; C1769; C1894; G0257; G0378; J0690; J0744; J1100; J1170; J1200; J1450; J1644; J2250; J2405; J2543; J2920; J3010; J3490; J7030; J7120; J8597; P9016; Q4081; Q9967

== ENCOUNTER 2021-10-10 17:05 | Emergency (ER) | payer MEDICARE, BC ==
[~2021-10-10 17:05] MED LIST changes: +ACET-1025 PO; +BETA1TAB19 PO; +BUPR1TAB48 PO; -CA C1TAB89 PO; +CALC0.2511 PO; +CEFD300C3 PO; -DONE10TA7 PO; +DONE23TA7 PO; +LACT1CAP26 PO; +METR-159 PO; -MULT-1074 PO; -NITR0.4T48 SL; -OCCUVITE; -PRED20TA; +[UNRECOGNIZED DRUG - CODE]; +[UNRECOGNIZED DRUG - REMARK]
== END 2021-10-10 23:17 | disposition left against medical advice (07) ==
LOC: ER 17:06
DX: Z53.21 Procedure and treatment not carried out due to patient leaving prior to being seen by health care provider (principal)

== ENCOUNTER 2021-11-07 05:57 | Day surgery (SDC) | payer MEDICARE, BC ==
[2021-10-29 15:51] LABS: BASOPHILS % (AUTO) 0.4 % (0-1); EOSINOPHILS # (AUTO) 0.4 X10'3 (0-0.9); EOSINOPHILS % (AUTO) 3.8 % (0-6); LYMPHOCYTES # (AUTO) 0.6 X10'3 (1.1-4.8); LYMPHOCYTES % (AUTO) 6.1 % (21-51); MEAN CORPUSCULAR HEMOGLOBIN 28.5 PG (27.0-31.0); MEAN CORPUSCULAR HGB CONC 33.3 g/dL (33.0-36.5); MEAN CORPUSCULAR VOLUME 85.5 FL (78-98); MEAN PLATELET VOLUME 6.8 FL (7.4-10.4); MONOCYTES % (AUTO) 10.1 % (2-12); NEUTROPHILS # (AUTO) 8.1 X10'3 (1.8-7.7); NEUTROPHILS % (AUTO) 79.6 % (42-75); PRE OP HEMATOCRIT 32.5 % (42.0-52.0); PRE OP PLATELET COUNT 262 X10'3 (140-440); RED BLOOD COUNT 3.79 X10'6 (4.70-6.10); RED CELL DISTRIBUTION WIDTH 18.4 % (11.5-14.5)
[2021-10-29 15:55] LABS: PRE OP HEMOGLOBIN 10.8 g/dL (14.0-17.9)
[2021-10-29 16:21] LABS: CLARITY,URINE CLEAR (Clear); COLOR,URINE YELLOW (Yellow); GLUCOSE, URINE NEGATIVE (Neg); KETONES,URINE NEGATIVE (Neg); LEUKOCYTE ESTERASE ,URINE NEGATIVE (Neg); NITRITES, URINE NEGATIVE (Neg); OCCULT BLOOD,URINE MODERATE (Neg); PH,URINE 5.5 (4.8-8.0); PROTEIN,URINE TRACE mg/dl (Neg); UROBILINOGEN,URINE 0.2 E.U/dL (0.2-1.0)
[2021-10-29 16:27] LABS: ALBUMIN 2.7 G/DL (3.4-5.0); ALBUMIN/GLOBULIN RATIO 0.8 (1.1-1.5); ALKALINE PHOSPHATASE 90 IU/L (46-116); BLOOD UREA NITROGEN 72 MG/DL (7-18); BUN/CREATININE RATIO 9.6 (5.4-32.0); CALCIUM 6.5 MG/DL (8.5-10.1); CHLORIDE 103 MMOL/L (99-107); CREATININE 7.53 MG/DL (0.60-1.10); PRE OP ALT 34 U/L (30-65); PRE OP ANION GAP 11 (8-16); PRE OP AST 39 U/L (10-37); PRE OP BILIRUB, TOTAL 0.2 MG/DL (0.0-1.0); PRE OP GLUCOSE 101 MG/DL (70-104); PRE OP POTASSIUM 4.1 MMOL/L (3.4-5.1); PRE OP SODIUM 141 MMOL/L (135-145); TOTAL CARBON DIOXIDE 26.8 MMOL/L (24-32); TOTAL PROTEIN 6.2 G/DL (6.4-8.2); eGFR 7 ML/MIN
[2021-10-29 16:30] LABS: UA COLLECTION TYPE VOIDED
[2021-10-29 16:31] LABS: HYALINE CASTS 0-3 /LPF (NEGATIVE); MUCUS STRANDS FEW /LPF (Neg); SQUAMOUS EPITHELIAL CELL,UR MODERATE /LPF (FEW)
[2021-10-29 16:32] LABS: BACTERIA,URINE 1+ /HPF (Neg); RBC,URINE 20-50 /HPF (0-2); WBC CLUMPS,URINE FEW /HPF (NEGATIVE)
[2021-11-07] VITALS (10 sets, daily range): BP systolic 125–139; BP diastolic 60–69
[~2021-11-07] VITALS: Ht 170.2 cm; Wt 69.9 kg
[~2021-11-07 05:57] MED LIST changes: -ASPI-611 PO; -CALC0.2511 PO; -CEFD300C3 PO; +CLOP75TA34 PO; -LACT1CAP26 PO; +METO5TAB85 PO; -METR-159 PO; -PHO667C PO; +cefazolin/dext.iso 2gm/50ml IV ONE; +famotidine 20mg tablet PO ONE; +ringers solution, lacted 1,000 ML IV SCH
[2021-11-07] MEDS ORDERED: BUPIVAcaine 0.5% inj/PF 30 ML ONE (06:42)
[2021-11-07] MEDS ORDERED: propofol inj 20 ML IV ONE (08:07)
[2021-11-07] MEDS ORDERED: rocuronium 10mg/ml inj IV ONE (08:37)
[2021-11-07] MEDS ORDERED: fentaNYL/PF 50MCG/1 ML 2ML syringe ONE (08:38)
[2021-11-07] MEDS ORDERED: BUPIVAcaine 0.5% inj/PF 30 ml vial IJ ONE (09:26)
[2021-11-07] MEDS ORDERED: acetaminophen 1,000mg/100ml IV 100 ML IV ONE (09:35)
[2021-11-07] MEDS ORDERED: bacitracin 15gm ointment TP ONE (09:44)
[2021-11-07] MEDS ORDERED: sugammadex 200mg/2ml injection IV ONE (09:49)
[2021-11-07] MEDS ORDERED: ondansetron/PF 4mg/2ml inj IV PRN (09:55)
[2021-11-07] MEDS ORDERED: meperidine/PF 25mg/ml syringe IV PRN ×3 (09:55)
[2021-11-07] MEDS ORDERED: ringers solution, lacted 1,000 ML IV SCH (09:55)
[2021-11-07] MEDS ORDERED: morphine 4 MG/ML inj SYRINge IV PRN (09:55)
[2021-11-07] MEDS ORDERED: morphine 2 MG/ML inj. syringe IV PRN (09:55)
[2021-11-07] MEDS ORDERED: proCHLORperazine 10 MG/2 ml inj IV PRN (09:55)
--- NOTE | 2021-11-07 10:06 | NUR ---
Received from OR via [facility], accompanied by Anesthesiologist and OR nurse and report given by Anesthesiolgist. Pt is awake and alert, attempting to climb out of the gurney. pt reorients easily. Calm now. Small amount of red stain noted on abdominal dressing, peritoneal dialysis catheter remains in place. IV fluids at 10 cc an hour due to renal status. vital signs stable. o2 at 10 liter with face mask in place. o2 sats in the high 90's. pt is pleasantly confused which is his baseline. Addendum: 11/07/21 at 1125 by Dinah Guillaume RN Amended: Links added.
--- NOTE | 2021-11-07 10:42 | NUR ---
pt medicated with morphine with good results, continues to try and get out of the rn sitting in the room with patient so i can redirect him into resting until he recovers from anesthesia Addendum: 11/07/21 at 1125 by Dinah Guillaume RN Amended: Links added.
[2021-11-07] MEDS ORDERED: HYDROcodone/acetaminophen 10/325mg tab PO ONE (11:10)
--- NOTE | 2021-11-07 12:12 | NUR ---
I HAVE REVIEWED D/C INSTRUCTIONS WITH PATIENT AND HIS . THEY HAVE VERBALIZED UNDERSTANDING OF INSTRUCTIONS. I WROTE DOWN THE TIME THAT THE PT RECEIVED A PAIN PILL HERE AT THE HOSPITAL SO WHEN THEY START TAKING THEIR HOME MEDS THEY CAN TIME IT CORRECTLY. PATIENT D/C HOME WITH ALL BELONGINGS AND FAMILY GAVE TRANSPORT Addendum: 11/07/21 at 1216 by Dinah Guillaume RN Amended: Links added.
== END 2021-11-07 11:26 | disposition home or self-care (01) ==
LOC: PAS 05:57
PROVIDERS: ATTEND Surgery
DX: K43.2 Incisional hernia without obstruction or gangrene (principal); F03.90 Unspecified dementia, unspecified severity, without behavioral disturbance, psychotic disturbance, mood disturbance, and anxiety; G47.30 Sleep apnea, unspecified; E78.5 Hyperlipidemia, unspecified; G47.00 Insomnia, unspecified; E55.9 Vitamin D deficiency, unspecified; I25.2 Old myocardial infarction; I25.10 Atherosclerotic heart disease of native coronary artery without angina pectoris; I12.9 Hypertensive chronic kidney disease with stage 1 through stage 4 chronic kidney disease, or unspecified chronic kidney disease; N18.9 Chronic kidney disease, unspecified; G89.29 Other chronic pain; N40.0 Benign prostatic hyperplasia without lower urinary tract symptoms; Z91.041 Radiographic dye allergy status; Z79.899 Other long term (current) drug therapy; Z79.82 Long term (current) use of aspirin; Z72.89 Other problems related to lifestyle; Z87.891 Personal history of nicotine dependence; Z98.890 Other specified postprocedural states; Z95.5 Presence of coronary angioplasty implant and graft; Z98.84 Bariatric surgery status; Z90.49 Acquired absence of other specified parts of digestive tract; Z87.11 Personal history of peptic ulcer disease; Z85.89 Personal history of malignant neoplasm of other organs and systems; Z99.2 Dependence on renal dialysis; Z20.822 Contact with and (suspected) exposure to COVID-19
CPT/HCPCS: 36415; 49560; 49568; 80053; 81001; 82948; 85025; 87088; 87635; 93005; C1781; C9803; J0131; J0690; J2270; J2704; J3010; J3490; J7030; J7120; S0020; Z7506; Z7508; Z7512; A4215; A4618; A7000